=== PATIENT | female | born 1975 | race Two or more races ===

== ENCOUNTER 2023-10-29 20:45 | Inpatient (IN) | payer MEDICAID, OTHER ==
[~2023-10-29] VITALS: Ht 162.6 cm; Wt 95.7 kg
[2023-10-29 21:04] LABS: Basophils # (auto) 0 10 ^3/uL (0-0.2); Basophils % (auto) 0.6 % (0.0-2.0); Eosinophils # (auto) 0 10 ^3/uL (0-0.8); Eosinophils % (auto) 0.5 % (0.0-7.0); Hematocrit 33.3 % (36.0-46.0); Hemoglobin 11.2 g/dL (12.2-16.2); Lymphocytes # (auto) 1.3 10 ^3/uL (0.4-5.4); Lymphocytes % (auto) 18.5 % (10.0-50.0); Mean Corpuscular Hemoglobin 27.9 pg (28.0-32.0); Mean Corpuscular Hgb Conc. 33.6 g/dL (32.0-36.0); Mean Corpuscular Volume 82.9 fL (80.0-100.0); Monocytes # (auto) 0.7 10 ^3/uL (0-1.3); Monocytes % (auto) 9.2 % (0.0-12.0); Neutrophils # (auto) 5.1 10 ^3/uL (1.6-8.6); Neutrophils % (auto) 71.2 % (37.0-80.0); Platelet Count (auto) 170 10^3/uL (140-450); Red Blood Cells 4.02 10^6/uL (4.0-5.20); Red Cell Distribution Width 13.4 % (11.8-14.3); White Blood Cell 7.1 10^3/uL (4.4-10.8)
[2023-10-29 21:10] VITALS: PULSE 99; RESP 22; O2SAT 95
[2023-10-29 21:19] LABS: INR 1.03 (0.9-1.15); Partial Thromboplastin Time 31.7 SEC (24.5-34.5); Prothrombin Time 10.9 sec (9.3-11.8)
[2023-10-29 21:20] LABS: Alanine Aminotransferase 13 U/L (7-40); Albumin 4.4 g/dL (3.2-4.8); Alkaline Phosphatase 104 U/L (46-116); Anion Gap 7 (5-15); Aspartate Aminotransferase 13 U/L (13-40); BUN/Creatinine Ratio 12.2 (10.0-20.0); Bilirubin, Total 0.9 mg/dL (0.2-1.0); Blood Urea Nitrogen 11 mg/dL (9-23); Calcium 9.6 mg/dL (8.7-10.4); Carbon Dioxide 29 mmol/L (20-30); Chloride 106 mmol/L (98-107); Glucose 72 mg/dL (74-106); Magnesium 1.8 mg/dL (1.6-2.6); Potassium 3.8 mmol/L (3.5-5.1); Sodium 142 mmol/L (136-145); Total Protein 7.3 g/dL (5.7-8.2)
[2023-10-29] MEDS: ACETAMINOPHEN 325 MG TAB PO ONE (21:21)
[2023-10-29] MEDS: AZITHROMYCIN 250 MG TAB PO ONE (21:21)
[2023-10-29] MEDS: VANCOMYCIN 1GM/250ML 200 ML IV ONE (21:45)
[2023-10-29] MEDS: ONDANSETRON HCL 4 MG/2 ML VIAL IV ONE (22:04)
[2023-10-29] MEDS: KETOROLAC TROMETH 30 MG/ML 1ML VIAL IV ONE (22:05)
[2023-10-29] MEDS: CEFEPIME 2GM/50ML NS 50 ML IV ONE (22:53)
[2023-10-29] MEDS: KETAMINE 50mg/ML 10ml Vial (500mg/10ml) IV ONE (22:54)
[2023-10-30 02:03] LABS: Urine Bacteria FEW /hpf (None Seen); Urine Blood Negative /uL (Negative); Urine Clarity Clear (Clear); Urine Color Light-Yellow (Yellow); Urine Protein, UAD Negative (Negative); Urine Specific Gravity 1.017 (1.001-1.035); Urine Urobilinogen Normal (Negative); Urine WBC 4 /hpf (0 - 5); Urine pH 5.5 (5.0-9.0)
[2023-10-30] MEDS ORDERED: MORPHINE SULFATE INJ 2 MG/ml SYRG IV PRN (04:30)
[2023-10-30] MEDS: ENOXAPARIN SOD 100 MG/1 ML SYRINGE SC ONE (04:30)
[2023-10-30] MEDS ORDERED: ACETAMINOPHEN 325 MG TAB PO PRN (04:30)
[2023-10-30] MEDS ORDERED: HYDROmorphone HCL 2 MG/ML VL/or syr IV PRN (05:45)
[2023-10-30 08:00] VITALS: PULSE 66; RESP 15; O2SAT 100
[2023-10-30] MEDS: cefTRIAXone 1GM/50ML D5W 50 ML IV SCH (09:37)
[2023-10-30] MEDS: ASPirin 81 mg TAB PO SCH (09:38)
[2023-10-30] MEDS: ISOSORBIDE MONONITRATE ER 60 MG TAB PO SCH (09:38)
[2023-10-30] MEDS: FUROSEMIDE 40 MG TAB PO SCH (09:39)
[2023-10-30] MEDS: amLODIPine BESYLATE 5 MG TAB PO SCH (09:39)
[2023-10-30] MEDS: RANOLAZINE ER 500 MG TAB PO SCH (09:39)
[2023-10-30] MEDS: APIXABAN 5 MG TAB PO SCH (09:40)
[2023-10-30] MEDS: METOPROLOL SUCCINATE XL 50 MG TAB PO SCH (09:40)
[2023-10-30 11:40] LABS: Amphetamine Screen, Urine Neg (NEGATIVE); Barbiturate Scree,Urine Neg (NEGATIVE); Benzodiazephine Screen, Urine Neg (NEGATIVE); Cocaine Screen, Urine Neg (NEGATIVE); Opiate Scree,Urine Neg (NEGATIVE)
[2023-10-30 11:41] LABS: Cannabinoid Screen, Urine Neg (NEGATIVE); Phencyclidine Screen, Urine Neg (NEGATIVE)
[2023-10-30 19:30] VITALS: PULSE 68; RESP 10; O2SAT 100
[2023-10-30] MEDS: AMIODARONE HCL 200 MG TAB PO ONE (19:51)
[2023-10-30] MEDS: ATORVASTATIN 20 MG TAB PO SCH (22:53)
[2023-10-31] VITALS (7 sets, daily range): BP systolic 138–155; BP diastolic 65–82; PULSE 57–71; RESP 17–18; TEMP 97.8–98.4; O2SAT 96–100
[2023-10-31] MEDS: KETOROLAC TROMETH 30 MG/ML 1ML VIAL IV ONE (03:03)
[2023-10-31 05:25] LABS: Anion Gap 5 (5-15); Carbon Dioxide 32 mmol/L (20-30); Chloride 103 mmol/L (98-107); Potassium 4.3 mmol/L (3.5-5.1); Sodium 140 mmol/L (136-145)
[2023-10-31 05:26] LABS: Calcium 9.1 mg/dL (8.7-10.4)
[2023-10-31 05:31] LABS: BUN/Creatinine Ratio 10.8 (10.0-20.0); Blood Urea Nitrogen 9 mg/dL (9-23); Glucose 104 mg/dL (74-106)
[2023-10-31] MEDS ORDERED: TIOT1AER INH (09:54)
[2023-10-31] MEDS ORDERED: ATOR40TA52 PO (09:54)
[2023-10-31] MEDS ORDERED: FURO40TA4 PO (09:54)
[2023-10-31] MEDS ORDERED: ISO60SRT PO (09:54)
[2023-10-31] MEDS ORDERED: MET50T PO (09:54)
[2023-10-31] MEDS ORDERED: AMLO1TAB23 PO (09:54)
[2023-10-31] MEDS ORDERED: APIX5TAB PO (09:54)
[2023-10-31] MEDS ORDERED: TIZA1TAB20 PO (09:54)
[2023-10-31] MEDS ORDERED: ESCI5TAB20 PO (09:54)
[2023-10-31] MEDS ORDERED: INSU100I52 SC (09:54)
[2023-10-31] MEDS ORDERED: PREG100C66 PO (09:54)
[2023-10-31] MEDS ORDERED: METO25TA93 PO (09:54)
[2023-10-31] MEDS ORDERED: OXYC15TA PO (09:54)
[2023-10-31] MEDS ORDERED: RANO10003 PO (09:54)
[2023-10-31] MEDS ORDERED: BUPR150T18 PO (09:54)
[2023-10-31] MEDS ORDERED: HYDRX10T PO (09:54)
[2023-10-31] MEDS ORDERED: ARIP10TA29 PO (09:54)
[2023-10-31] MEDS ORDERED: NICO7DIS31 (09:54)
[2023-10-31] MEDS ORDERED: INSU1INJ19 SC (09:54)
[2023-10-31] MEDS ORDERED: ALBU108A5 INH (09:54)
[2023-10-31] MEDS ORDERED: TRAZ1TAB12 PO (09:54)
[2023-10-31] MEDS ORDERED: ASPI-325 PO (09:54)
[2023-10-31] MEDS: ASPirin 81 mg TAB PO SCH (12:37)
[2023-10-31] MEDS: AMIODARONE HCL 200 MG TAB PO SCH (12:38)
[2023-10-31] MEDS: oxyCODONE ER 10 MG TAB PO SCH (16:30)
[2023-10-31] MEDS: KETOROLAC TROMETH 30 MG/ML 1ML VIAL IV PRN (17:49)
[2023-10-31] MEDS: NITROGLYCERIN 0.4 MG SL TAB SL PRN (17:58)
[2023-10-31] MEDS ORDERED: fentaNYL CITRATE 100 MCG/2 ML VL IV ONE (18:30)
[2023-10-31] MEDS ORDERED: oxyCODONE ER 10 MG TAB PO SCH (22:00)
[2023-10-31] MEDS: traMADol HCL 50 MG TAB PO ONE (23:30)
[2023-11-01] VITALS (8 sets, daily range): BP systolic 121–145; BP diastolic 64–87; PULSE 61–65; RESP 17–20; TEMP 97.5–98.9; O2SAT 95–100
[2023-11-01] MEDS: METOPROLOL SUCCINATE XL 50 MG TAB PO SCH (10:34)
[2023-11-01 11:44] LABS: Anion Gap 6 (5-15); Carbon Dioxide 33 mmol/L (20-30); Chloride 101 mmol/L (98-107); Potassium 4.3 mmol/L (3.5-5.1); Sodium 140 mmol/L (136-145)
[2023-11-01 11:45] LABS: Calcium 9.4 mg/dL (8.7-10.4)
[2023-11-01 11:50] LABS: BUN/Creatinine Ratio 19.4 (10.0-20.0); Blood Urea Nitrogen 18 mg/dL (9-23); Glucose 185 mg/dL (74-106)
[2023-11-01] MEDS: ONDANSETRON HCL 4 MG/2 ML VIAL IV PRN (15:06)
[2023-11-01] MEDS: TEMAZEPAM 15 MG CAP PO ONE (23:19)
[2023-11-02] VITALS (10 sets, daily range): BP systolic 102–132; BP diastolic 47–77; PULSE 60–66; RESP 18–20; TEMP 97.3–98.7; O2SAT 95–100
[2023-11-03 00:36] VITALS: BP 101/78; PULSE 68; RESP 18; TEMP 97.8; O2SAT 100
== END 2023-11-03 00:51 | disposition short-term general hospital (02) | DRG 200 ==
LOC: ER 20:45 → EDBD 20:45 → TELE 10-30 04:25 → TELE-WESTW 10-31 09:18
PROVIDERS: ADMIT Nurse Practitioner; ATTEND Internal Medicine
DX: I05.0 Rheumatic mitral stenosis (principal); I21.A1 Myocardial infarction type 2; I47.20 Ventricular tachycardia, unspecified; E11.9 Type 2 diabetes mellitus without complications; I50.9 Heart failure, unspecified; I11.0 Hypertensive heart disease with heart failure; N39.0 Urinary tract infection, site not specified; I25.10 Atherosclerotic heart disease of native coronary artery without angina pectoris; J44.9 Chronic obstructive pulmonary disease, unspecified; Z95.2 Presence of prosthetic heart valve; Z88.5 Allergy status to narcotic agent; Z79.899 Other long term (current) drug therapy; Z79.01 Long term (current) use of anticoagulants; Z79.82 Long term (current) use of aspirin; Z87.891 Personal history of nicotine dependence
CPT/HCPCS: 36415; 71045; 80048; 80053; 80307; 81001; 82962; 83605; 83735; 83880; 84484; 85025; 85610; 85730; 87040; 93005; 93306; 96365; 96375; 99291; G0378; J0692; J1885; J2405

== ENCOUNTER 2024-03-18 17:31 | Inpatient (IN) | payer MEDICAID ==
[~2024-03-18] VITALS: Ht 172.7 cm; Wt 99.9 kg
[~2024-03-18 17:31] MED LIST: ALBU108A5 INH; AMLO1TAB23 PO; APIX5TAB PO; ARIP10TA29 PO; ASPI-325 PO; ATOR40TA52 PO; BUPR150T18 PO; ESCI5TAB20 PO; FURO40TA4 PO; HYDRX10T PO; INSU100I52 SC; INSU1INJ19 SC; ISO60SRT PO; METO25TA93 PO; NICO7DIS31; OXYC15TA PO; PREG100C66 PO; RANO10003 PO; TIOT1AER INH; TIZA1TAB20 PO; TRAZ1TAB12 PO
[2024-03-18 18:37] LABS: Basophils # (auto) 0 10 ^3/uL (0-0.2); Basophils % (auto) 0.7 % (0.0-2.0); Eosinophils # (auto) 0.2 10 ^3/uL (0-0.8); Eosinophils % (auto) 2.9 % (0.0-7.0); Lymphocytes # (auto) 1.9 10 ^3/uL (0.4-5.4); Lymphocytes % (auto) 29.2 % (10.0-50.0); Mean Corpuscular Hemoglobin 27.6 pg (28.0-32.0); Mean Corpuscular Hgb Conc. 33.3 g/dL (32.0-36.0); Mean Corpuscular Volume 82.9 fL (80.0-100.0); Monocytes # (auto) 0.6 10 ^3/uL (0-1.3); Monocytes % (auto) 9.4 % (0.0-12.0); Neutrophils # (auto) 3.7 10 ^3/uL (1.6-8.6); Neutrophils % (auto) 57.8 % (37.0-80.0); Nucleated Red Blood Cells % 0.1 %; Platelet Count (auto) 195 10^3/uL (140-450); Red Blood Cells 3.99 10^6/uL (4.0-5.20); Red Cell Distribution Width 14.3 % (11.8-14.3); White Blood Cell 6.5 10^3/uL (4.4-10.8)
[2024-03-18 18:54] LABS: Alanine Aminotransferase 10 U/L (7-40); Albumin 4.4 g/dL (3.2-4.8); Anion Gap 5 (5-15); Blood Urea Nitrogen 11 mg/dL (9-23); Calcium 9.9 mg/dL (8.7-10.4); Carbon Dioxide 31 mmol/L (20-31); Chloride 104 mmol/L (98-107); Potassium 3.8 mmol/L (3.5-5.1); Sodium 140 mmol/L (136-145)
[2024-03-18 18:55] LABS: Bilirubin, Total 0.5 mg/dL (0.2-1.0)
[2024-03-18 18:58] LABS: Alkaline Phosphatase 121 U/L (46-116); Aspartate Aminotransferase < 8 U/L (13-40); Glucose 296 mg/dL (74-106)
--- NOTE | 2024-03-18 19:25 | ED.PDOC ---
HPI Comments 48y F who presents to the ED via EMS for chief complaint of chest pain. Pt states she has been having substernal chest pain since earlier this AM. Pt states the chest pain woke her from her sleep. Pt states the pain is substernal, non-radiating, constant, with associated exacerbating factor of pain while taking deep breaths or relieving factors. Pt states she also been dealing with associated shortness of breath, dry cough, nausea, and vomiting. Pt states she took nitro 0.4 mg x 3 prior to ED arrival. Pt states she also had CABG a few months prior at [place]. Pt otherwise denies any other symptoms at this time. Chief Complaint: Chest Pain Time Seen by MD: 19:23 Primary Care Provider: EDER ALVAREZ Reviewed Notes: Nurses Notes, Surgical Elastic Knitter Hand Frame Notes Allergies: Coded Allergies: Fentanyl (Verified Allergy, Unknown, 10/29/23) Morphine (Verified Allergy, Unknown, 10/29/23) Home Meds Reported Medications Tiotropium [place]-Olodaterol (Stiolto Respimat 2.5-2.5 Mcg/Act) 1 Aer Aer, 2 PUFF INH DAILY 10/31/23 Albuterol Sulfate (Albuterol Sulfate Hfa) 108 Mcg/Act Aer, INH 10/31/23 Insulin Glargine (Basaglar Kwikpen) 100 Unit/Ml Inj, SC 10/31/23 Aripiprazole (Aripiprazole) 10 Mg Tab, 1 TAB PO DAILY 10/31/23 Apixaban Base (ELIQUIS) 5 Mg Tab, 1 TAB PO BID 10/31/23 Tizanidine Hydrochloride (Tizanidine Hcl) 2 Mg Tab, PO 10/31/23 Escitalopram Oxalate (ESCITALOPRAM OXALATE) 5 Mg Tab, 1 TAB PO DAILY 10/31/23 Hydroxyzine Hcl (Hydroxyzine Hcl) 10 Mg Tab, 1 TAB PO BID 10/31/23 Pregabalin (Pregabalin) 100 Mg Cap, PO 10/31/23 Nicotine (Gnp Nicotine Transdermal) 7 Mg/24 Hr Dis, 1 DAILY 10/31/23 Oxycodone HCl (Oxycodone Hydrochloride) 15 Mg Tab, PO 10/31/23 Bupropion Hcl (Bupropion Hcl Xl) 150 Mg Tab, 1 TAB PO DAILY 10/31/23 Trazodone Hcl (Trazodone Hcl) 150 Mg Tab, 1 TAB PO DAILY 10/31/23 Furosemide (Furosemide) 40 Mg Tab, 1 TAB PO DAILY 10/31/23 Amlodipine Besylate (Amlodipine Besylate) 10 Mg Tab, 1 TAB PO DAILY 10/31/23 Metoprolol Succinate (Metoprolol Succinate Er) 25 Mg Tab, 1 TAB PO DAILY 10/31/23 Ranolazine (Ranolazine ER) 1,000 Mg Tab, 1 TAB PO BID 10/31/23 Insulin Lispro (Insulin Lispro) 100 Unit/Ml Inj, SC 10/31/23 Isosorbide Mononitrate (Isosorbide Mononitrate ER) 60 Mg Tab, 1 TAB PO DAILY 10/31/23 Aspirin (Aspirin Low Dose) 81 Mg Tab, 1 TAB PO DAILY 10/31/23 Atorvastatin Calcium (ATORVASTATIN CALCIUM) 40 Mg Tab, 1 TAB PO DAILY 10/31/23 Information Source: Patient, Emergency Med Personnel Mode of Arrival: EMS Brought in by: EMS Vital Signs Vital Signs Date Time Temp Pulse Resp B/P (MAP) Pulse Ox O2 Delivery O2 Flow Rate FiO2 03/18/24 21:00 98.0 76 17 159/83 (108) 99 98.0 03/18/24 19:03 Nasal Cannula 2.0 Physical Exam General: Awake, alert and oriented. No acute distress. Skin: Skin in warm, dry and intact. Appropriate color for ethnicity. HEENT: The head is normocephalic and atraumatic. Conjunctivae are clear without exudates or hemorrhage. Sclera is non-icteric. EOM are intact. No signs of nystagmus. Eyelids are normal in appearance without swelling or lesions. Oral mucosa is pink and moist Neck: The neck is supple with normal range of motion. No JVD. Cardiac: Heart rate and rhythm are normal. No murmurs, gallops, or rubs are auscultated. Respiratory: Rales at the bilateral bases. No sign of respiratory distress. Abdominal: Abdomen is soft, non-tender without distention. Bowel sounds are present and normoactive in all four quadrants. Extremities: Bilateral lower extremity pitting edema Neurological: The patient is awake, alert and oriented to person, place, and time with normal speech. Speech is clear. There is no facial asymmetry. Psychiatric: Appropriate mood and affect. Good judgement and insight. No visual or auditory hallucinations. Review of Systems: REVIEW OF SYSTEMS: No fever, no chills, HEENT: Positive congestion, No neck pain, no blurred vision Cardiac: Positive chest pain. No palpitations. Lungs: Positive shortness of breath, GI: No abdominal pain, no vomiting Musculoskeletal: Positive lower extremity edema n Skin: No rash, no wound Neuro: No headache, no dizziness, no syncope Past Medical History PAST MEDICAL HISTORY: CHF, COPD, DM, HTN Surgical History: CABG GRAIN COMBINER History: Denies all GRAIN COMBINER Hx Family History Family History: Unknown Social History Smoker: Non-Smoker Alcohol: Denies ETOH Use Drugs: Denies Drug Use Lives In: Home EKG EKG : Pulse Rate (adult): 67 [place]: Normal Cardiac Rhythm: Afib Block: None Hypertrophy: None ST: Normal Was a procedure done? Was a procedure done?: No CP Differential Dx Differential Diagnosis: A-fib, A-Flutter, Angina, Anxiety / Panic Attack, Heart Failure, NV, PVC's Other Differential Diagnosis acute coronary syndrome Differential Diagnosis: HTN Essential, HTN Accelerated, HTN Encephalopathy, Medical NonCompliance X-Ray, Labs, Meds, VS Vital Signs Date Time Temp Pulse Resp B/P (MAP) Pulse Ox O2 Delivery O2 Flow Rate FiO2 03/18/24 21:00 98.0 76 17 159/83 (108) 99 98.0 03/18/24 20:30 67 03/18/24 19:52 63 03/18/24 19:03 65 18 98 Nasal Cannula 2.0 03/18/24 19:03 98.1 65 18 169/91 (117) 98 98.1 03/18/24 18:36 72 03/18/24 17:52 99.0 70 15 173/114 (133) 99 03/18/24 17:31 67 Lab Test 03/18/24 19:40 03/18/24 18:20 Range/Units Troponin I High Sensitivity 628 *H 657 *H </=34 ng/L White Blood Count 6.5 4.4-10.8 10^3/uL Red Blood Count 3.99 L 4.0-5.20 10^6/uL Hemoglobin 11.0 L 12.2-16.2 g/dL Hematocrit 33.0 L 36.0-46.0 % Mean Corpuscular Volume 82.9 80.0-100.0 fL Mean Corpuscular Hemoglobin 27.6 L 28.0-32.0 pg Mean Corpuscular Hemoglobin Concent 33.3 32.0-36.0 g/dL Red Cell Distribution Width 14.3 11.8-14.3 % Platelet Count 195 140-450 10^3/uL Mean Platelet Volume 8.8 6.9-10.8 fL Neutrophils (%) (Auto) 57.8 37.0-80.0 % Lymphocytes (%) (Auto) 29.2 10.0-50.0 % Monocytes (%) (Auto) 9.4 0.0-12.0 % Eosinophils (%) (Auto) 2.9 0.0-7.0 % Basophils (%) (Auto) 0.7 0.0-2.0 % Neutrophils # (Auto) 3.7 1.6-8.6 10 ^3/uL Lymphocytes # (Auto) 1.9 0.4-5.4 10 ^3/uL Monocytes # (Auto) 0.6 0-1.3 10 ^3/uL Eosinophils # (Auto) 0.2 0-0.8 10 ^3/uL Basophils # (Auto) 0 0-0.2 10 ^3/uL Nucleated Red Blood Cells 0.1 % Prothrombin Time 10.5 9.3-11.8 sec Prothrombin Time INR 0.99 0.9-1.15 Activated Partial Thromboplast Time 27.9 24.5-34.5 SEC D-Dimer, Quantitative 0.89 H 0.0-0.49 mg/L FEU Sodium Level 140 136-145 mmol/L Potassium Level 3.8 3.5-5.1 mmol/L Chloride Level 104 98-107 mmol/L Carbon Dioxide Level 31 20-31 mmol/L Anion Gap 5 5-15 Blood Urea Nitrogen 11 9-23 mg/dL Creatinine 0.92 0.550-1.02 mg/dL Glomerular Filtration Rate Calc 77 >90 mL/min BUN/Creatinine Ratio 12.0 10.0-20.0 Serum Glucose 296 H 74-106 mg/dL Calcium Level 9.9 8.7-10.4 mg/dL Total Bilirubin 0.5 0.2-1.0 mg/dL Aspartate Amino Transferase (AST) < 8 L 13-40 U/L Alanine Aminotransferase (ALT) 10 7-40 U/L Alkaline Phosphatase 121 H 46-116 U/L B-Type Natriuretic Peptide 135.92 0-100 pg/mL Total Protein 7.0 5.7-8.2 g/dL Albumin 4.4 3.2-4.8 g/dL Current Medications Medications (Trade) Dose Ordered Sig/Jarrett Route Start Time Stop Time Status Last Admin Aspirin 324 mg ONCE ONCE PO 03/18/24 19:30 03/18/24 19:31 DC 03/18/24 20:59 Furosemide (Lasix Injection) 80 mg ONCE ONCE IV 03/18/24 19:30 03/18/24 19:31 DC 03/18/24 22:15 Heparin Sodium (Porcine) 4,000 units ONCE ONCE IV 03/18/24 21:00 03/18/24 21:01 DC 03/18/24 22:16 Heparin Sodium/ Dextrose 250 ml @ 10 mls/hr Q24H IV 03/18/24 21:00 03/18/24 23:11 [place] [id number] Ph: [phone] DIAGNOSTIC IMAGING Diagnostic Imaging Report : [id number] Signed PATIENT: BOB MONROY ACCT: [id number] UNIT: [id number] : 1975 LOC: ER ROOM / BED: / AGE / SEX: 48 / F ADM STATUS: REG ER SERVICE 04 ORDERING PHYSICIAN: TRACY NATION MD PROCEDURE(s): CXR1 - CHEST XRAY 1 VIEW REASON: CP ORDER NUMBER(s): [id number], ACCESSION NUMBER(s): [id number] CHEST RADIOGRAPH Indication: CP Technique: Single frontal view of the chest was obtained COMPARISON: Chest AP 10/29/2023 FINDINGS: Lines and Tubes: None Lungs: Mildly prominent pulmonary vascularity without evidence of pulmonary edema. No pulmonary infiltrates noted. Pleura: No effusion. No pneumothorax. Cardiomediastinal contours: Mild cardiomegaly. Bones: Unremarkable. Prior sternotomy. IMPRESSION: Mild cardiomegaly and mild pulmonary vascular congestion without evidence of pulmonary edema or airspace consolidation. ATED BY: ZAKC WU MD DICTATED DATE/TIME: 03/18/242005 SIGNED BY: ZACK WU MD SIGNED DATE/TIME: 03/18/242005 CC: Time of 1ST Reevaluation: 07:52 (2nd EKG shows: rate 63, sinus atrial rhythm, atrial premature complex, probably LVH, NO STEMI) Reevaluation 1ST: Unchanged Time of 2ND Reevaluation: 08:36 (3rd EKG shows, rate 72, AFIB , probable LVH, no STEMI) Reevaluation 2ND: Unchanged Patient Education/Counseling: Diagnosis, Treatment Family Education/Counseling: No Family Present Departure 1 Departure Time of Disposition: 19:44 Impression: Primary Impression: Chest pain Additional Impressions: NSTEMI (non-ST elevated myocardial infarction) CHF exacerbation Disposition: ADMITTED INPATIENT Condition: Stable Comments 48-year-old female who presents to the emergency with 1 day of chest pain, shortness of breath. Chest x-ray positive for congestive changes. EKG shows no ST elevations. Patient is started on, aspirin and heparin. Patient admitted for further treatment, evaluation and monitoring. Extensive evaluation was performed in attempt to identify or rule out: (See differential diagnosis section) The following tests were ordered, and results were reviewed by me: (See diagnostic results section) The following test were independently interpreted by me: EKG, chest x-ray I reviewed and agreed with the following test results read by other providers: Chest x-ray I reviewed the following notes from the pt's past medical encounters: Encounter October 27, 2023 for chest pain Additional information was gathered from interviewing the following independent historians: N/A Discussion of management or test interpretation with external physician/other qualified health zoo caretaker: N/A Addressed one or more chronic illnesses with severe exacerbation, progression, or side effects of treatment: CHF, an acute or chronic illness that poses a threat to life or bodily function: NSTEMI, CHF exacerbation Decision regarding hospitalization or escalation of hospital level of care: Risk and benefits of admission for further treatment of patient's condition was considered. Due to patient's current clinical condition, high risk of decline and poor outcome if discharged and need for further inpatient management and monitoring, patient will be admitted to the hospital. Drug therapy requiring intensive monitoring for toxicity: IV heparin , IV Lasix Parenteral controlled substances: N/A Decision regarding elective major surgery with identified patient or procedure risk factors: N/A Decision regarding emergency major surgery: N/A Decision not to resuscitate or to de-escalate care because of poor prognosis: N/A Diagnosis or treatment significantly limited by social determinants of health: N/A Critical Care Note Critical Care Time?: No Stability Stability form required: No Heart Score Heart Score: Heart Score Response (Comments) Value History Moderate Suspicious 1 EKG Repolarization Disturb 1 Age 45-64 1 Risk Factors >3 or Hx ASHD 2 Troponin >3 x's Normal limit 2 Total 7 I personally scribed for TRACY NATION MD ([email or web address]) on 03/18/24 at 19:25. Electronically submitted by William Sarah ([email or web address]). I personally scribed for TRACY NATION MD ([email or web address]) on 03/18/24 at 20:12. Electronically submitted by William Sarah ([email or web address]). I personally scribed for TRACY NATION MD ([email or web address]) on 03/18/24 at 20:30. Electronically submitted by William Sarah ([email or web address]). I personally scribed for TRACY NATION MD ([email or web address]) on 03/18/24 at 20:43. Electronically submitted by William Sarah ([email or web address]). TRACY NATION MD Mar 18, 2024 19:25
--- NOTE | 2024-03-18 20:09 | DVH ---
CHEST RADIOGRAPH Indication: CP Technique: Single frontal view of the chest was obtained COMPARISON: Chest AP 10/29/2023 FINDINGS: Lines and Tubes: None Lungs: Mildly prominent pulmonary vascularity without evidence of pulmonary edema. No pulmonary infil trates noted. Pleura: No effusion. No pneumothorax. Cardiomediastinal contours: Mild cardiomegaly. Bones: Unremarkable. Prior sternotomy. IMPRESSION: Mild cardiomegaly and mild pulmonary vascular congestion without evidence of pulmonary edema or airsp renetta consolidation.
[2024-03-18] MEDS: ASPirin 81 mg TAB PO ONE (20:59)
--- NOTE | 2024-03-18 21:10 | ECG ---
[facility] Test Date: 2024-03-18 Test Time: 17:31:30 Pat Name: BOB MORNOY Department: ER Room: 0216T Gender: F Mud Mixer Helper: YAMILKA : 1975 Requested By: LAZARO MCLEOD Order Number: [id number] Reading MD: Keny Irvin Measurements Intervals [place] Rate: 67 P: 0 CO: 0 QRS: 72 QRSD: 100 T: 40 QT: 415 QTc: 438 Interpretive Statements Atrial fibrillation Electronically Signed On 03-21-2024 10:45:59 PST by Keny Irvin Please click the below link to view image of tracing.
--- NOTE | 2024-03-18 21:10 | ECG ---
[facility] Test Date: 2024-03-18 Test Time: 20:36:16 Pat Name: BOB MONROY Department: ER Room: 0216T Gender: F Midwife Practitioner: YAMILKA : 1975 Requested By: LAZARO MCLEOD Order Number: [id number] Reading MD: Keny Irvin Measurements Intervals [place] Rate: 72 P: 0 [place]: 0 QRS: 54 QRSD: 99 T: 30 QT: 426 QTc: 467 Interpretive Statements Atrial fibrillation Probable left ventricular hypertrophy Baseline wander in lead(s) I,II,aVR,V1,V2,V3,V4,V5,V6 Electronically Signed On 03-21-2024 10:47:14 PST by Keny Irvin Please click the below link to view image of tracing.
--- NOTE | 2024-03-18 21:10 | ECG ---
[facility] Test Date: 2024-03-18 Test Time: 19:52:52 Pat Name: BOB MONROY Department: ER Room: 0216T Gender: F Lithographic Etcher: YAMILKA : 1975 Requested By: LAZARO MCLEOD Order Number: [id number] Reading MD: Keny Irvin Measurements Intervals [place] Rate: 63 P: -63 MN: 150 QRS: 56 QRSD: 100 T: 39 QT: 423 QTc: 434 Interpretive Statements Sinus or ectopic atrial rhythm Atrial premature complex Consider right atrial enlargement Probable left ventricular hypertrophy Electronically Signed On 03-21-2024 10:47:01 PST by Keny Irvin Please click the below link to view image of tracing.
[2024-03-18] MEDS: FUROSEMIDE 40 MG/4 ML VIAL IV ONE (21:12)
[2024-03-18] MEDS: NITROGLYCERIN 0.4 MG SL TAB SL PRN (21:14)
[2024-03-18] MEDS ORDERED: TEMAZEPAM 15 MG CAP PO PRN (21:15)
[2024-03-18] MEDS ORDERED: ACETAMINOPHEN 325 MG TAB PO PRN (21:15)
[2024-03-18] MEDS ORDERED: DEXTROSE (50%) 50ML SYRG IV PRN (21:15)
[2024-03-18] MEDS ORDERED: MORPHINE SULFATE INJ 2 MG/ml SYRG IV PRN (21:15)
--- NOTE | 2024-03-18 21:31 | DVHHP2 ---
History of Present Illness Reason for Visit: Chest pain History of Present Illness 48-year-old female presents for evaluation of chest pain. Patient endorses a one day history of substernal pressure-like nonradiating chest pain with associated shortness for breath, nausea, dizziness and bilateral lower extremity swelling. Denies cough or fever. No abdominal pain or distention. No other acute complaints reported. Past Medical History Hypertension, diabetes mellitus, COPD and CHF Past Surgical History CABG Family History Noncontributory Smoke: No ALCOHOL: none Drugs: None Lives: with Family Review of Systems Review of Systems Review of systems are currently negative otherwise addressed in HPI Allergies: Coded Allergies: Fentanyl (Verified Allergy, Unknown, 10/29/23) Morphine (Verified Allergy, Unknown, 10/29/23) Medications Current Medications Medications Dose Ordered Sig/Jarrett Route Start Time Stop Time Status Last Admin Dose Admin Heparin Sodium/ Dextrose 250 ml @ 10 mls/hr Q24H IV 03/18/24 21:00 Nitroglycerin 0.4 mg Q5MINP PRN SL 03/18/24 21:15 03/18/24 21:14 0.4 MG Morphine Sulfate 2 mg Q30M PRN IV 03/18/24 21:15 Hold Aspirin 162 mg DAILY PO 03/19/24 10:00 UNV Atorvastatin Calcium 40 mg HS PO 03/18/24 22:00 UNV Albuterol 2.5 mg Q6HPRN PRN NEB 03/18/24 21:15 UNV Amlodipine Besylate 10 mg DAILY PO 03/19/24 10:00 UNV Furosemide 20 mg BIDD IV 03/19/24 06:00 UNV Isosorbide Mononitrate 60 mg DAILY PO 03/19/24 10:00 UNV Ranolazine 1,000 mg BID PO 03/18/24 22:00 UNV Diagnostic Test (Pha) 1 strip Q6HR 03/19/24 00:00 UNV Insulin Human Regular Q6HR SC 03/19/24 00:00 UNV Dextrose 50 ml UD PRN IV 03/18/24 21:15 UNV Temazepam 15 mg QHSP PRN PO 03/18/24 21:15 UNV Ondansetron HCl 4 mg Q4HP PRN IV 03/18/24 21:15 UNV Acetaminophen 650 mg Q6HP PRN PO 03/18/24 21:15 UNV Exam Vital Signs Vital Signs Date Time Temp Pulse Resp B/P (MAP) Pulse Ox O2 Delivery O2 Flow Rate FiO2 03/18/24 21:14 168/75 03/18/24 21:00 98.0 76 17 99 98.0 03/18/24 19:03 Nasal Cannula 2.0 Exam Gen: 48-year-old female in mild distress Skin: Warm, dry, normal color and texture, no rash. HEENT: Normocephalic atraumatic, mucous membranes moist and pink. Neck: Cervical and supraclavicular nodes normal without enlargement, trachea is midline, thyroid gland is normal without masses. Pulmonary: Clear to auscultation and percussion bilaterally. Cardiac: Regular rate and rhythm. No murmur Abdomen: Soft, nontender, nondistended, bowel sounds present all 4 quadrants, no guarding, no rigidity, no organomegaly. Extremities: No cyanosis, clubbing, plus two bilateral pedal edema Neuro: Cranial nerves II through XII grossly intact, normal affect and speech, no focal motor deficits. Labs/Xrays ORDERING PHYSICIAN: TRACY NATION MD PROCEDURE(s): CXR1 - CHEST XRAY 1 VIEW REASON: CP ORDER NUMBER(s): [id number], ACCESSION NUMBER(s): [id number] CHEST RADIOGRAPH Indication: CP Technique: Single frontal view of the chest was obtained COMPARISON: Chest AP 10/29/2023 FINDINGS: Lines and Tubes: None Lungs: Mildly prominent pulmonary vascularity without evidence of pulmonary edema. No pulmonary infiltrates noted. Pleura: No effusion. No pneumothorax. Cardiomediastinal contours: Mild cardiomegaly. Bones: Unremarkable. Prior sternotomy. IMPRESSION: Mild cardiomegaly and mild pulmonary vascular congestion without evidence of pulmonary edema or airspace consolidation. Labs Test 03/18/24 19:40 03/18/24 18:20 Range/Units Troponin I High Sensitivity 628 *H </=34 ng/L White Blood Count 6.5 4.4-10.8 10^3/uL Red Blood Count 3.99 L 4.0-5.20 10^6/uL Hemoglobin 11.0 L 12.2-16.2 g/dL Hematocrit 33.0 L 36.0-46.0 % Mean Corpuscular Volume 82.9 80.0-100.0 fL Mean Corpuscular Hemoglobin 27.6 L 28.0-32.0 pg Mean Corpuscular Hemoglobin Concent 33.3 32.0-36.0 g/dL Red Cell Distribution Width 14.3 11.8-14.3 % Platelet Count 195 140-450 10^3/uL Mean Platelet Volume 8.8 6.9-10.8 fL Neutrophils (%) (Auto) 57.8 37.0-80.0 % Lymphocytes (%) (Auto) 29.2 10.0-50.0 % Monocytes (%) (Auto) 9.4 0.0-12.0 % Eosinophils (%) (Auto) 2.9 0.0-7.0 % Basophils (%) (Auto) 0.7 0.0-2.0 % Neutrophils # (Auto) 3.7 1.6-8.6 10 ^3/uL Lymphocytes # (Auto) 1.9 0.4-5.4 10 ^3/uL Monocytes # (Auto) 0.6 0-1.3 10 ^3/uL Eosinophils # (Auto) 0.2 0-0.8 10 ^3/uL Basophils # (Auto) 0 0-0.2 10 ^3/uL Nucleated Red Blood Cells 0.1 % Sodium Level 140 136-145 mmol/L Potassium Level 3.8 3.5-5.1 mmol/L Chloride Level 104 98-107 mmol/L Carbon Dioxide Level 31 20-31 mmol/L Anion Gap 5 5-15 Blood Urea Nitrogen 11 9-23 mg/dL Creatinine 0.92 0.550-1.02 mg/dL Glomerular Filtration Rate Calc 77 >90 mL/min BUN/Creatinine Ratio 12.0 10.0-20.0 Serum Glucose 296 H 74-106 mg/dL Calcium Level 9.9 8.7-10.4 mg/dL Total Bilirubin 0.5 0.2-1.0 mg/dL Aspartate Amino Transferase (AST) < 8 L 13-40 U/L Alanine Aminotransferase (ALT) 10 7-40 U/L Alkaline Phosphatase 121 H 46-116 U/L B-Type Natriuretic Peptide 135.92 0-100 pg/mL Total Protein 7.0 5.7-8.2 g/dL Albumin 4.4 3.2-4.8 g/dL Assessment/Plan Assessment/Plan Assessment Acute on chronic congestive heart failure Elevated troponin rule out NSTEMI versus demand ischemia COPD Diabetes mellitus Plan Admit the patient to telemetry to the hospitalist Cardiology consultation Continue heparin drip started by ER provider D-dimer/lipid panel/hemoglobin A1c pending Resume home medications Continue treatment per orders. Plan discussed with: Patient My Orders Orders - HARPREET BEASLEY AGACNP Procedure Category Date Status Time Admit ADMIT 03/18/24 Transmitted 21:06 Nitroglycerin PHA 03/18/24 In Process Sublingual (Ntrostat 21:15 Morphine Sulfate PHA 03/18/24 In Process Injection 21:15 Notify Of Changes ROSE 03/18/24 In Process From Base 21:06 Scalehouse Attendant For ROSE 03/18/24 In Process 24 Hours 21:06 Emergency Dysrhythmia ROSE 03/18/24 In Process Protocol 21:06 Rhythm Strips Once ROSE 03/18/24 In Process Every Shift 21:06 Oxygen By Nasal RT 03/18/24 Transmitted Cannula 21:06 Aspirin Tablet PHA 03/19/24 Logged 10:00 Atorvastatin (Lipitor) PHA 03/18/24 Logged 22:00 Albuterol Medneb PHA 03/18/24 Logged (Ventolin Medneb) 21:15 Amlodipine Tablet PHA 03/19/24 Logged (Norvasc Tablet) 10:00 Furosemide Injection PHA 03/19/24 Logged (Lasix Injection) 06:00 Isosorbide PHA 03/19/24 Logged Mononitrate Tablet 10:00 Ranolazine (Ranexa Er) PHA 03/18/24 Logged 22:00 * Cardiology Consult CONS 03/18/24 Transmitted 21:14 Basic Metabolic Panel LAB 03/19/24 Verified 04:00 Glucose Blood PHA 03/19/24 Logged (Accu-Chek Comfort 00:00 Insulin R (Human) PHA 03/19/24 Logged (Insulin R) 00:00 Dextrose 50% Syringe PHA 03/18/24 Logged 21:15 Temazepam (Restoril) PHA 03/18/24 Logged 21:15 Ondansetron Hcl PHA 03/18/24 Logged (Zofran) 21:15 Cardiac DIET 03/19/24 Transmitted Diet-2gna,Lofat,Lochol Breakfast Condition: Fair ROSE 03/18/24 In Process 21:14 Acetaminophen Tablet PHA 03/18/24 Logged (Tylenol Tablet) 21:15 Bedrest With Bathroom ROSE 03/18/24 In Process Privileg 21:14 Date of Service: Mar 18, 2024 Billing Provider: HARPREET BEASLEY Common Visit Codes: [id number] INP/OBS CARE (HIGH) HARPREET BEASLEY Mar 18, 2024 21:31
[2024-03-18 21:46] VITALS: PULSE 77; RESP 16; O2SAT 97
[2024-03-18 21:47] LABS: INR 0.99 (0.9-1.15); Partial Thromboplastin Time 27.9 SEC (24.5-34.5); Prothrombin Time 10.5 sec (9.3-11.8)
[2024-03-18] MEDS: HYDROmorphone HCL 2 MG/ML VL/or syr IV ONE (22:07)
[2024-03-18] MEDS: ATORVASTATIN 20 MG TAB PO SCH (22:12)
[2024-03-18] MEDS: RANOLAZINE ER 500 MG TAB PO SCH (22:13)
[2024-03-18] MEDS: HEPARIN SODIUM (PORCINE) 5000 UNITS/ML 1ML VIAL IV ONE (22:16)
[2024-03-18] MEDS: HEPARIN DRIP/D5W 100UNITS/ML 250 ML IV SCH (23:11)
[2024-03-19] MEDS: HYDROmorphone HCL 2 MG/ML VL/or syr IV SCH
[2024-03-19] MEDS: ONDANSETRON HCL 4 MG/2 ML VIAL IV PRN (00:19)
[2024-03-19] MEDS: InsuLIN REG 1unit/0.01ml Soln (100units/ml) SC SCH (00:19)
[2024-03-19] MEDS: ACCU-CHEK COMFORT CURVE STRIP VI SCH (00:19)
[2024-03-19 01:01] VITALS: BP 141/58; PULSE 71; RESP 18; TEMP 98.4; O2SAT 92
[2024-03-19] MEDS: ALBUTEROL SULF 2.5 MG/0.5ML(0.5%) NEB SOLN NEB PRN (01:01)
[2024-03-19 06:02] LABS: Anion Gap 7 (5-15); Chloride 102 mmol/L (98-107); INR 1.03 (0.9-1.15); Partial Thromboplastin Time 48.6 SEC (24.5-34.5); Prothrombin Time 10.9 sec (9.3-11.8); Sodium 142 mmol/L (136-145)
[2024-03-19 06:09] LABS: BUN/Creatinine Ratio 11.7 (10.0-20.0); Blood Urea Nitrogen 11 mg/dL (9-23)
[2024-03-19] MEDS: FUROSEMIDE 20 MG/2 ML VIAL IV SCH (06:12)
[2024-03-19 06:24] LABS: Carbon Dioxide 33 mmol/L (20-31); Glucose 188 mg/dL (74-106); Potassium 3.4 mmol/L (3.5-5.1)
[2024-03-19] MEDS: HEPARIN DRIP/D5W 100UNITS/ML 250 ML IV SCH ×2 (06:53→20:27)
[2024-03-19 07:21] VITALS: O2SAT 98
[2024-03-19 08:11] VITALS: PULSE 74; RESP 16; O2SAT 98
--- NOTE | 2024-03-19 09:54 | DVHINCON2 ---
RAMONE ROTH [facility] 03/19/24 0954: Date Seen: Mar 19, 2024 Referring Physician YOLIS Long Reason for Consultation CHF, high troponin History of Present Illness This is a 48-year-old female patient who presents to the emergency room with chief complaint of chest pain. Patient reports that it began yesterday at approximately 10:00 a.m. while she was sleeping. She describes it as unprovoked, constant, pressure-like in nature, midsternal with radiation across her left and right side of chest. Associated symptoms include shortness of breath. The patient reports taking sublingual nitroglycerin with relief. She came to the emergency room for further evaluation. Initial twelve lead electrocardiogram reveals atrial fibrillation. Initial troponin level of 657ng/L with flat trend thereafter. Significant past medical history includes mitral valve stenosis s/p multiple mitral valve repairs (most recent was a bovi ne transcatheter mitral valve replacement on 11/23/23), atrial fibrillation/flutter status post ablation, hypertension, dyslipidemia, type 2 diabetes mellitus, COPD, and morbid obesity. The patient reports previous mitral valve repairs in 2004 and 2012 respectively which were done via open heart. Past Medical History Past medical history reviewed. No other significant than mentioned above. Past Surgical History Mitral valve replacement X 3: 2004 (open heart), 2023 Family History: Cardiovascular disease G8 FATHER FHx: breast cancer G8 MOTHER, FHx: congestive heart failure G8 MOTHER, FHx: dementia G8 FATHER Family History Family history reviewed. Social History Denies the use of tobacco, alcohol or illicit drugs. Allergies: Coded Allergies: Fentanyl (Verified Allergy, Unknown, 10/29/23) Morphine (Verified Allergy, Unknown, 10/29/23) Home Meds Reported Medications Tiotropium [place]-Olodaterol (Stiolto Respimat 2.5-2.5 Mcg/Act) 1 Aer Aer, 2 PUFF INH DAILY 10/31/23 Albuterol Sulfate (Albuterol Sulfate Hfa) 108 Mcg/Act Aer, INH 10/31/23 Insulin Glargine (Basaglar Kwikpen) 100 Unit/Ml Inj, SC 10/31/23 Aripiprazole (Aripiprazole) 10 Mg Tab, 1 TAB PO DAILY 10/31/23 Apixaban Base (ELIQUIS) 5 Mg Tab, 1 TAB PO BID 10/31/23 Tizanidine Hydrochloride (Tizanidine Hcl) 2 Mg Tab, PO 10/31/23 Escitalopram Oxalate (ESCITALOPRAM OXALATE) 5 Mg Tab, 1 TAB PO DAILY 10/31/23 Hydroxyzine Hcl (Hydroxyzine Hcl) 10 Mg Tab, 1 TAB PO BID 10/31/23 Pregabalin (Pregabalin) 100 Mg Cap, PO 10/31/23 Nicotine (Gnp Nicotine Transdermal) 7 Mg/24 Hr Dis, 1 DAILY 10/31/23 Oxycodone HCl (Oxycodone Hydrochloride) 15 Mg Tab, PO 10/31/23 Bupropion Hcl (Bupropion Hcl Xl) 150 Mg Tab, 1 TAB PO DAILY 10/31/23 Trazodone Hcl (Trazodone Hcl) 150 Mg Tab, 1 TAB PO DAILY 10/31/23 Furosemide (Furosemide) 40 Mg Tab, 1 TAB PO DAILY 10/31/23 Amlodipine Besylate (Amlodipine Besylate) 10 Mg Tab, 1 TAB PO DAILY 10/31/23 Metoprolol Succinate (Metoprolol Succinate Er) 25 Mg Tab, 1 TAB PO DAILY 10/31/23 Ranolazine (Ranolazine ER) 1,000 Mg Tab, 1 TAB PO BID 10/31/23 Insulin Lispro (Insulin Lispro) 100 Unit/Ml Inj, SC 10/31/23 Isosorbide Mononitrate (Isosorbide Mononitrate ER) 60 Mg Tab, 1 TAB PO DAILY 10/31/23 Aspirin (Aspirin Low Dose) 81 Mg Tab, 1 TAB PO DAILY 10/31/23 Atorvastatin Calcium (ATORVASTATIN CALCIUM) 40 Mg Tab, 1 TAB PO DAILY 10/31/23 Home Meds Home medications reviewed. Current Medications Current Medications Medications (Trade) Dose Ordered Sig/Jarrett Route PRN Reason Start Time Stop Time Status Last Admin Heparin Sodium/ Dextrose 250 ml @ 10 mls/hr Q24H IV 03/18/24 21:00 03/19/24 06:44 DC 03/18/24 23:11 Nitroglycerin (Ntrostat Sublingual) 0.4 mg Q5MINP PRN SL FOR CHEST PAIN 03/18/24 21:15 03/19/24 09:49 DC 03/19/24 03:02 Morphine Sulfate 2 mg Q30M PRN IV FOR CHEST PAIN 03/18/24 21:15 03/19/24 09:49 DC Aspirin 162 mg DAILY PO 03/19/24 10:00 Atorvastatin Calcium (Lipitor) 40 mg HS PO 03/18/24 22:00 03/18/24 22:12 Albuterol (Ventolin Medneb) 2.5 mg Q6HPRN PRN NEB SHORTNESS OF BREATH 03/18/24 21:15 03/19/24 01:01 Amlodipine Besylate (Norvasc Tablet) 10 mg DAILY PO 03/19/24 10:00 Furosemide (Lasix Injection) 20 mg BIDD IV 03/19/24 06:00 03/19/24 09:49 DC 03/19/24 06:12 Isosorbide Mononitrate (Imdur Er Tablet) 60 mg DAILY PO 03/19/24 10:00 Ranolazine (Ranexa ER) 1,000 mg BID PO 03/18/24 22:00 03/18/24 22:13 Diagnostic Test (Pha) (Accu-Chek Comfort Curve T) 1 strip Q6HR 03/19/24 00:00 03/19/24 06:11 Insulin Human Regular (InsuLIN R) Q6HR SC 03/19/24 00:00 03/19/24 06:15 Dextrose 50 ml UD PRN IV Blood Sugar LESS THAN 60 03/18/24 21:15 Temazepam (Restoril) 15 mg QHSP PRN PO FOR INSOMNIA 03/18/24 21:15 03/19/24 09:49 DC Ondansetron HCl (Zofran) 4 mg Q4HP PRN IV NAUSEA / VOMITING 03/18/24 21:15 03/19/24 00:19 Acetaminophen (Tylenol Tablet) 650 mg Q6HP PRN PO PAIN SCALE 1-3 OR TEMP>100.4 03/18/24 21:15 Hydromorphone HCl (Dilaudid Injection) 0.25 mg Q6HPRN IV 03/19/24 00:00 03/19/24 07:03 Heparin Sodium/ Dextrose 250 ml @ 12 mls/hr [id number] IV 03/19/24 06:45 03/19/24 06:53 Review of Systems Constitutional: No symptom reported Ears, Nose, & Throat: No symptom reported Eyes: No symptom reported Neurological: No symptoms reported Pulmonary/Respiratory: No symptoms reported Cardiovascular: Chest pain Gastrointestinal: No symptom reported Genitourinary: No symptom reported Musculoskeletal: No symptom reported Skin: No symptom reported Psychiatric: No symptom reported Endocrine: No symptom reported Hematologic/Lymphatic: No symptom reported Vital Signs Vital Signs Date Time Temp Pulse Resp B/P (MAP) Pulse Ox O2 Delivery O2 Flow Rate FiO2 03/19/24 08:11 74 16 98 Nasal Cannula* 2 28 03/19/24 07:45 122/53 03/19/24 01:01 98.4 98.4 Physical Exam General Appearance: Cooperative. Obese Pulmonary/Respiratory: Clear, bilateral breaths sounds. Cardiovascular/Chest: Irregular rate and rhythm. Peripheral Pulses: 2+ Radial (R). 2+ Radial (L). 2+ Pedal (R). 2+ Pedal (L) Abdominal Exam: Normal bowel sounds. Ankle Exam: Negative ankle edema Lower extremities: Negative lower extremity edema Neuro/Mental Status: A/OX4, coherent. Thoughts/Psych: Normal thought pattern. Appropriate mood and affect. Good judgment and insight. Appearance: No acute distress. Skin Exam: Normal inspection. Normal color. Warm and dry. Labs/Diagnostic Data Labs Test 03/19/24 07:50 03/19/24 04:55 03/18/24 22:48 03/18/24 18:20 Range/Units POC Glucose 187 H 70-106 mg/dl Prothrombin Time 10.9 9.3-11.8 sec Prothrombin Time INR 1.03 0.9-1.15 Activated Partial Thromboplast Time 48.6 H 24.5-34.5 SEC Sodium Level 142 136-145 mmol/L Potassium Level 3.4 L 3.5-5.1 mmol/L Chloride Level 102 98-107 mmol/L Carbon Dioxide Level 33 H 20-31 mmol/L Anion Gap 7 5-15 Blood Urea Nitrogen 11 9-23 mg/dL Creatinine 0.94 0.550-1.02 mg/dL Glomerular Filtration Rate Calc 75 >90 mL/min BUN/Creatinine Ratio 11.7 10.0-20.0 Serum Glucose 188 H 74-106 mg/dL Calcium Level 10.0 8.7-10.4 mg/dL Troponin I High Sensitivity 607 *H </=34 ng/L White Blood Count 6.5 4.4-10.8 10^3/uL Red Blood Count 3.99 L 4.0-5.20 10^6/uL Hemoglobin 11.0 L 12.2-16.2 g/dL Hematocrit 33.0 L 36.0-46.0 % Mean Corpuscular Volume 82.9 80.0-100.0 fL Mean Corpuscular Hemoglobin 27.6 L 28.0-32.0 pg Mean Corpuscular Hemoglobin Concent 33.3 32.0-36.0 g/dL Red Cell Distribution Width 14.3 11.8-14.3 % Platelet Count 195 140-450 10^3/uL Mean Platelet Volume 8.8 6.9-10.8 fL Neutrophils (%) (Auto) 57.8 37.0-80.0 % Lymphocytes (%) (Auto) 29.2 10.0-50.0 % Monocytes (%) (Auto) 9.4 0.0-12.0 % Eosinophils (%) (Auto) 2.9 0.0-7.0 % Basophils (%) (Auto) 0.7 0.0-2.0 % Neutrophils # (Auto) 3.7 1.6-8.6 10 ^3/uL Lymphocytes # (Auto) 1.9 0.4-5.4 10 ^3/uL Monocytes # (Auto) 0.6 0-1.3 10 ^3/uL Eosinophils # (Auto) 0.2 0-0.8 10 ^3/uL Basophils # (Auto) 0 0-0.2 10 ^3/uL Nucleated Red Blood Cells 0.1 % D-Dimer, Quantitative 0.89 H 0.0-0.49 mg/L FEU Total Bilirubin 0.5 0.2-1.0 mg/dL Aspartate Amino Transferase (AST) < 8 L 13-40 U/L Alanine Aminotransferase (ALT) 10 7-40 U/L Alkaline Phosphatase 121 H 46-116 U/L B-Type Natriuretic Peptide 135.92 0-100 pg/mL Total Protein 7.0 5.7-8.2 g/dL Albumin 4.4 3.2-4.8 g/dL Assessment NSTEMI Mitral valve stenosis status post bovine mitral valve replacement (2004, 2012, 2023) Atrial fibrillation, likely paroxysmal (on amiodarone and Eliquis) Hypertension Dyslipidemia COPD Type 2 diabetes mellitus Morbid obesity Plan/Recommendation We will continue with the following plan/recommendations (Dr. Goodwin): Case reviewed and discussed with . We will proceed with obtaining a tra nsthoracic echocardiogram to evaluate cardiac function, valves, and wall motion. Patient had recent coronary angiogram at [facility]. Dr. Goodwin to speak with traveling construction superintendent at [facility] regarding patient's recent workup. In the meantime, continue with medical management. Further recommendations and plan per clinical progression. Thank you for allowing us to care for this patient. Please call with any questions or concerns. Critical care time spent: 44 minutes This medical document was created using an electronic medical record system with voice recognition software and computerized dictation system. Although this document has been carefully reviewed, there might still be some phonetic and typographical errors. Occasional wrong-word or ``sound-alike substitutions may have occurred due to the inherent limitations of voice recognition software. These areas are purely typographical due to imperfections of the software programs and do not reflect any compromise in the patient's medical care. Please read the chart carefully and recognize, using context, where these substitutions have occurred. Plan discussed with: Patient NYHA Physical activity limitations: NA Date of Service: Mar 19, 2024 Billing Provider: RAMONE ROTH Cardiology Common Codes: 64104-PHXREMF INP/OBS CARE (High) Cardiology Consultation Codes: 84175-[id number] CONSULT <45MIN CARY GOODWIN MD 03/19/247: Family History: Cardiovascular disease G8 FATHER FHx: breast cancer G8 MOTHER, FHx: congestive heart failure G8 MOTHER, FHx: dementia G8 FATHER Allergies: Coded Allergies: Fentanyl (Verified Allergy, Unknown, 10/29/23) Morphine (Verified Allergy, Unknown, 10/29/23) Home Meds Reported Medications Tiotropium [place]-Olodaterol (Stiolto Respimat 2.5-2.5 Mcg/Act) 1 Aer Aer, 2 PUFF INH DAILY 10/31/23 Albuterol Sulfate (Albuterol Sulfate Hfa) 108 Mcg/Act Aer, INH 10/31/23 Insulin Glargine (Basaglar Kwikpen) 100 Unit/Ml Inj, SC 10/31/23 Aripiprazole (Aripiprazole) 10 Mg Tab, 1 TAB PO DAILY 10/31/23 Apixaban Base (ELIQUIS) 5 Mg Tab, 1 TAB PO BID 10/31/23 Tizanidine Hydrochloride (Tizanidine Hcl) 2 Mg Tab, PO 10/31/23 Escitalopram Oxalate (ESCITALOPRAM OXALATE) 5 Mg Tab, 1 TAB PO DAILY 10/31/23 Hydroxyzine Hcl (Hydroxyzine Hcl) 10 Mg Tab, 1 TAB PO BID 10/31/23 Pregabalin (Pregabalin) 100 Mg Cap, PO 10/31/23 Nicotine (Gnp Nicotine Transdermal) 7 Mg/24 Hr Dis, 1 DAILY 10/31/23 Oxycodone HCl (Oxycodone Hydrochloride) 15 Mg Tab, PO 10/31/23 Bupropion Hcl (Bupropion Hcl Xl) 150 Mg Tab, 1 TAB PO DAILY 10/31/23 Trazodone Hcl (Trazodone Hcl) 150 Mg Tab, 1 TAB PO DAILY 10/31/23 Furosemide (Furosemide) 40 Mg Tab, 1 TAB PO DAILY 10/31/23 Amlodipine Besylate (Amlodipine Besylate) 10 Mg Tab, 1 TAB PO DAILY 10/31/23 Metoprolol Succinate (Metoprolol Succinate Er) 25 Mg Tab, 1 TAB PO DAILY 10/31/23 Ranolazine (Ranolazine ER) 1,000 Mg Tab, 1 TAB PO BID 10/31/23 Insulin Lispro (Insulin Lispro) 100 Unit/Ml Inj, SC 10/31/23 Isosorbide Mononitrate (Isosorbide Mononitrate ER) 60 Mg Tab, 1 TAB PO DAILY 10/31/23 Aspirin (Aspirin Low Dose) 81 Mg Tab, 1 TAB PO DAILY 10/31/23 Atorvastatin Calcium (ATORVASTATIN CALCIUM) 40 Mg Tab, 1 TAB PO DAILY 10/31/23 Plan/Recommendation PATIENT SEEN WITH RESIDENT MD AND RN PT HAS COMPLEX HX, HX OF MVrepair in 2004 during , hx of MVR bio in 2012 and mitral replacement perc with DR Dejesus i called Dr Dejesus at [facility] and spoke to him today he had done negative LHC in past on pt he recommended medical management for patient if pt stable pt has Afib now but claims she didnt have it last week , she had afib ablation 1-2 weeks after surgery valve gradient is 3 mmhg it was felt with [facility] structural heart this was less likely acs cause and perhaps another issues, shes on doac likely her afib is bothering her as she feels her heart is erratic , consider DCCV with her EP consider po amiodarone and monitoring for pt RAMONE ROTH Mar 19, 2024 09:54 CARY GOODWIN MD Mar 19, 2024 19:47
[2024-03-19] MEDS: ISOSORBIDE MONONITRATE ER 60 MG TAB PO SCH (10:31)
[2024-03-19] MEDS: amLODIPine BESYLATE 5 MG TAB PO SCH (10:32)
[2024-03-19] MEDS: ASPirin 81 mg TAB PO SCH (10:33)
[2024-03-19 13:32] LABS: INR 1.05 (0.9-1.15); Partial Thromboplastin Time 60.3 SEC (24.5-34.5); Prothrombin Time 11.1 sec (9.3-11.8)
[2024-03-19] MEDS: POTASSIUM EFFERVESENT TAB 25 MEQ PO ONE (14:19)
--- NOTE | 2024-03-19 15:40 | DVHPNRES ---
Progress Note Date Seen: Mar 19, 2024 Resident Creating Document: OCTAVIO LOPEZ RESIDENT Medical Necessity Reason Pt with a Central, PICC or Fol: No Medical Necessity Reason Patient is a 48-year-old female with past medical history of mitral valve stenosis, CHF, AFib, COPD, hypertension, DM, dyslipidemia, gastroparesis, neuropathy, sleep apnea who came in due to chest pain that started 1 day ago, substernal pressure-like without any radiation along with with shortness of breaths that has been ongoing for the past 2 weeks. Patient notes that shortness of breath is what actually prompted this visit to the hospital, per patient she used her home oxygen 2 L along with her inhalers which did not relieve her shortness of breath and dyspnea. Patient notes that she started Ryze diet and since then her symptoms have been progressively getting worse. According to the patient, she had her 1st open heart surgery with mitral valve repair in 2004, her 2nd open heart surgery with mitral valve replacement was done in 2012. Patient recently underwent percutaneous balloon mitral valvuloplasty at [facility] in December 2023. Patient was initially started on warfarin after the 1st surgery in 2004 in later she was transitioned to Eliquis, however, per patient she stopped taking Eliquis in 2016 which was later resumed in 2019 for reasons unknown to the patient. On review of systems patient is complaining of fatigue, cough, dyspnea, shortness of breath and nausea. Past surgical history: Open heart surgery x2, percutaneous balloon mitral valvuloplasty, cholecystectomy, ablation for likely AFib in December 2023, hernia repair surgery, tubal ligation Home medications: Amiodarone, sucralfate, Protonix, albuterol, Eliquis, aripiprazole, aspirin, statin, bupropion, dapagliflozin, diphenhydramine, escitalopram, furosemide, hydroxyzine, insulin, isosorbide mononitrate, metoclopramide, metoprolol, Protonix, pregabalin, ranolazine, semaglutide, spironolactone, tizanidine, trazodone Past Hospitalization: In November 2023 at [facility] Social & Personal history: Patient lives with her sister. Quit smoking 1 month ago, prior to that was smoking 4-5 cigarettes per day for 35 years. Denies using alcohol. 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 Allergies: Morphine, fentanyl Patient seen and examined at bedside. Patient is alert and oriented to time, place person and responding to all questions. General: Fatigue Eyes: No Pain, No Vision change, No Conjunctivae inflammation, No Eyelid inflammation, No Other, No Redness ENT: No Ear pain, No Ear discharge, No Nose pain, No Nose discharge, No Nose congestion, No Mouth pain, No Mouth swelling, No Throat pain, No Throat swelling, No Other Cardiovascular: No Chest Pain, No Palpitations, No Orthopnea, No Paroxysmal No Dyspnea, No Edema, No Lt Headedness, No Other Respiratory: Cough, No Dry, Shortness of breath, No SOB with exertion, No Wheezing, No Hemoptysis, No Pleuritic Pain, No Sputum, No Other Gastrointestinal: Nausea, No Vomiting, No Abdominal Pain, No Diarrhea, No Constipation, No Melena, No Hematochezia, No Other Genitourinary: No Dysuria, No Frequency, No Incontinence, No Hematuria, No Retention, No Other Musculoskeletal: No other, No neck pain, No shoulder pain, No arm pain, No back pain, No hand pain, No leg pain, No foot pain Skin: No Rash, No Lesions, No Jaundice, No Bruising, No Other Objective vital signs Vital Sign Date Time Temp Pulse Resp B/P (MAP) Pulse Ox O2 Delivery O2 Flow Rate FiO2 03/19/24 13:53 76 14 103/52 03/19/24 09:00 100 03/19/24 08:11 Nasal Cannula* 2 28 03/19/24 01:01 98.4 98.4 Total Intake and Output 03/18/24 03/18/24 03/19/24 15:00 23:00 07:00 Intake Total 60 ml Output Total 2500 ml Balance -2440 ml medications Current Medications Medications Dose Ordered Sig/Jarrett Route Start Time Stop Time Status Last Admin Dose Admin Atorvastatin Calcium 40 mg HS PO 03/18/24 22:00 03/18/24 22:12 40 MG Albuterol 2.5 mg Q6HPRN PRN NEB 03/18/24 21:15 03/19/24 01:01 2.5 MG Amlodipine Besylate 10 mg DAILY PO 03/19/24 10:00 03/19/24 10:32 10 MG Isosorbide Mononitrate 60 mg DAILY PO 03/19/24 10:00 03/19/24 10:31 60 MG Ranolazine 1,000 mg BID PO 03/18/24 22:00 03/19/24 10:32 1,000 MG Diagnostic Test (Pha) 1 strip Q6HR 03/19/24 00:00 03/19/24 12:16 1 STRIP Insulin Human Regular Q6HR SC 03/19/24 00:00 03/19/24 06:15 4 UNITS Dextrose 50 ml UD PRN IV 03/18/24 21:15 Ondansetron HCl 4 mg Q4HP PRN IV 03/18/24 21:15 03/19/24 00:19 4 MG Acetaminophen 650 mg Q6HP PRN PO 03/18/24 21:15 Hydromorphone HCl 0.25 mg Q6HPRN IV 03/19/24 00:00 03/19/24 13:53 0.25 MG Heparin Sodium/ Dextrose 250 ml @ 12 mls/hr [id number] IV 03/19/24 06:45 03/19/24 06:53 12 MLS/HR Examination General Appearance: Cooperative. Well developed. Well nourished. NAD Head Exam: Normal inspection Neck Exam: Normal inspection. Non-tender. Normal alignment Pulmonary/Respiratory: Chest non-tender. Clear bilateral breath sounds, no crackles, no wheezing. Cardiovascular/Chest: Regular rate and rhythm. No murmurs. No JVD. Peripheral Pulses: 2+ Radial (R). 2+ Radial (L). 2+ Pedal (R). 2+ Pedal (L) Abdominal Exam: Normal bowel sounds. Soft. normal abdomen, no visible veins, Nontender. No hepatospenomegaly. No masses Ankle Exam: Negative ankle edema Lower extremities: Trace lower extremity edema Neuro/Mental Status: A&O x4. Coherent. Thoughts/Psych: Normal thought pattern. Appropriate mood and affect. Good judgement and insight Skin Exam: Normal inspection. Normal color. Warm. Dry laboratory and microbiology Laboratory Tests 03/19/24 04:55 03/18/24 18:20 Test 03/19/24 04:55 Range/Units Serum Glucose 188 H 74-106 mg/dL Labs and/or images reviewed: Labs reviewed by me, Image(s) reviewed by me Problem List/Assessment/Plan Problem List/Assessment/Plan Mitral valve replacement secondary to mitral sclerosis/stenosis? NSTEMI possibly type 2 due to above Congestive heart failure Atrial fibrillation, rate controlled - ordered echocardiogram - cardiology on board - CXR: Mild cardiomegaly and mild pulmonary vascular congestion without evidence of pulmonary edema or airspace consolidation - resumed home medication atorvastatin, amlodipine - isosorbide mononitrate 60 mg p.o. daily, ranolazine 1000 mg p.o. b.i.d. COPD, currently stable - albuterol med nebs Type 2 diabetes, insulin dependent Peripheral neuropathy - mild sliding scale insulin Secondary hypercoagulable state; mitral bovine transcatheter valve History of pulmonary embolism - heparin at 12 mL/hour PUD prophylaxis: protonix 40mg Goals of care: Full code, discussed for >16 minutes on 08/15/23 Plan discussed with patient Plan discussed with Dr. Quiñonez Plan discussed with: Patient, Other (RN) My Orders My Orders Orders - OCTAVIO LOPEZ Procedure Category Date Status Time Blood Culture AGUEDA 03/19/24 In Process 13:23 Date of Service: Mar 19, 2024 Billing Provider: LISETH QUIÑONEZ MD Common Visit Codes: [id number] INP/OBS CARE(HIGH) OCTAVIO LOPEZ Mar 19, 2024 15:40 LISETH QUIÑONEZ MD Mar 20, 2024 15:37
[2024-03-19] MEDS: SUCRALFATE 1 GM/10 ML ORAL SUSP GT SCH (17:52)
[2024-03-19 18:35] VITALS: O2SAT 97
[2024-03-19 19:36] LABS: INR 1.04 (0.9-1.15); Partial Thromboplastin Time 37.5 SEC (24.5-34.5)
[2024-03-19 19:45] VITALS: PULSE 75; RESP 17; O2SAT 96
--- NOTE | 2024-03-19 20:18 | DVHSR ---
APPROVED REPORT EXAM: Two-dimensional and M-mode echocardiogram with Doppler and color Doppler. Blood Pressure: 132/65 mmHg INDICATION evaluate cardiac function RISK FACTORS Obesity: Height: 5'8, Weight: 02 DIMENSIONS LVDd4.6 (3.8-5.7cm)LA (2D)4.0 (1.9-4.0cm)Aortic Root2.7 (2.0-3.7cm) LVDs3.4 (2.5-4.0cm)LA (MM) (1.9-4.0cm)Aortic Cusp Exc1.3 (1.5-2.0cm) EF (%) 50.0 (55-70%)Rt. Atrium4.8 (1.9-4.0cm)Asc. Aorta cm IVSd1.0 (0.7-1.1cm)RV (D) (1.8-2.4cm) PWd1.0 (0.7-1.1cm) Mitral Valve MitralMitral Stenosis E wavem/sMV Mean GR.4mmHg A wavem/sMV Peak GR.10mmHg E/A ratio0.02D MVAcm2 Aortic Valve Aortic ValveAortic Stenosis V10.85m/Valerie Mean GR.6mmHg V21.65m/Valerie Peak GR.11mmHg LVOT Diameter2.2 (1.8-2.4cm)Doppler AVA1.96cm2 Pulmonic Valve V21.13m/s Tricuspid Valve TR Velocity2.27m/s [id number] Other Information Quality : Technically LimitedRhythm : Technically limited study due to body habitus.patient position. Conclusion lvef 55% by visual estimate postop septum normal rv function s/p MV replacement prosthetic, mean graident is 3.5 mmhg, no severe MR noted left atrium enlarged
[2024-03-20 03:13] LABS: Basophils # (auto) 0.1 10 ^3/uL (0-0.2); Basophils % (auto) 0.8 % (0.0-2.0); Eosinophils # (auto) 0.2 10 ^3/uL (0-0.8); Eosinophils % (auto) 2.6 % (0.0-7.0); Hematocrit 33.1 % (36.0-46.0); Hemoglobin 10.8 g/dL (12.2-16.2); Lymphocytes # (auto) 2.4 10 ^3/uL (0.4-5.4); Lymphocytes % (auto) 28.1 % (10.0-50.0); Mean Corpuscular Hemoglobin 27.5 pg (28.0-32.0); Mean Corpuscular Hgb Conc. 32.6 g/dL (32.0-36.0); Mean Corpuscular Volume 84.2 fL (80.0-100.0); Monocytes # (auto) 0.9 10 ^3/uL (0-1.3); Monocytes % (auto) 10.7 % (0.0-12.0); Neutrophils # (auto) 4.9 10 ^3/uL (1.6-8.6); Neutrophils % (auto) 57.8 % (37.0-80.0); Platelet Count (auto) 187 10^3/uL (140-450); Red Blood Cells 3.93 10^6/uL (4.0-5.20); Red Cell Distribution Width 14.5 % (11.8-14.3); White Blood Cell 8.5 10^3/uL (4.4-10.8)
[2024-03-20 03:37] LABS: INR 1.05 (0.9-1.15); Prothrombin Time 11.1 sec (9.3-11.8)
[2024-03-20 03:55] LABS: Partial Thromboplastin Time 95.8 SEC (24.5-34.5)
[2024-03-20] MEDS: HEPARIN DRIP/D5W 100UNITS/ML 250 ML IV SCH (05:00)
[2024-03-20] MEDS: PANTOPRAZOLE 40 MG TAB PO SCH (05:58)
[2024-03-20 07:08] LABS: Anion Gap 6 (5-15); Chloride 99 mmol/L (98-107); Potassium 4.2 mmol/L (3.5-5.1); Sodium 139 mmol/L (136-145)
[2024-03-20 07:10] LABS: Calcium 9.7 mg/dL (8.7-10.4)
[2024-03-20 07:14] LABS: BUN/Creatinine Ratio 14.1 (10.0-20.0); Blood Urea Nitrogen 14 mg/dL (9-23)
[2024-03-20 07:21] LABS: Basophils # (auto) 0 10 ^3/uL (0-0.2); Basophils % (auto) 0.5 % (0.0-2.0); Eosinophils # (auto) 0.2 10 ^3/uL (0-0.8); Hematocrit 32.7 % (36.0-46.0); Hemoglobin 10.6 g/dL (12.2-16.2); Lymphocytes # (auto) 1.4 10 ^3/uL (0.4-5.4); Lymphocytes % (auto) 19.9 % (10.0-50.0); Mean Corpuscular Hemoglobin 27.2 pg (28.0-32.0); Mean Corpuscular Hgb Conc. 32.5 g/dL (32.0-36.0); Mean Corpuscular Volume 83.7 fL (80.0-100.0); Monocytes # (auto) 0.7 10 ^3/uL (0-1.3); Monocytes % (auto) 10.1 % (0.0-12.0); Neutrophils # (auto) 4.7 10 ^3/uL (1.6-8.6); Neutrophils % (auto) 66.5 % (37.0-80.0); Nucleated Red Blood Cells % 0.1 %; Platelet Count (auto) 205 10^3/uL (140-450); Red Blood Cells 3.91 10^6/uL (4.0-5.20); Red Cell Distribution Width 14.3 % (11.8-14.3); White Blood Cell 7.1 10^3/uL (4.4-10.8)
[2024-03-20 07:25] VITALS: O2SAT 100
[2024-03-20 07:26] LABS: Carbon Dioxide 34 mmol/L (20-31); Glucose 124 mg/dL (74-106)
[2024-03-20] MEDS: METOPROLOL SUCCINATE XL 50 MG TAB PO SCH (10:00)
--- NOTE | 2024-03-20 10:05 | ECG ---
[facility] Test Date: 2024-03-19 Test Time: 23:46:14 Pat Name: BOB MONROY Department: ER Room: 0216T Gender: F Active Directory Architect: : [id number] Requested By: ALYSON OCHOA Order Number: [id number] Reading MD: Keny Irvin Measurements Intervals [place] Rate: 73 P: -60 IN: 153 QRS: 71 QRSD: 102 T: 86 QT: 437 QTc: 482 Interpretive Statements Sinus or ectopic atrial rhythm Probable left ventricular hypertrophy Electronically Signed On 03-21-2024 11:59:37 PST by Keny Irvin Please click the below link to view image of tracing.
--- NOTE | 2024-03-20 11:15 | DVHPNRES ---
Progress Note Date Seen: Mar 20, 2024 Resident Creating Document: OCTAVIO LOPEZ RESIDENT Medical Necessity Reason Pt with a Central, PICC or Fol: No Subjective Review of Systems Patient is a 48-year-old female with past medical history of mitral valve stenosis, CHF, AFib, COPD, hypertension, DM, dyslipidemia, gastroparesis, neuropathy, sleep apnea who came in due to chest pain that started 1 day ago, substernal pressure-like without any radiation along with with shortness of breaths that has been ongoing for the past 2 weeks. Patient notes that shortness of breath is what actually prompted this visit to the hospital, per patient she used her home oxygen 2 L along with her inhalers which did not relieve her shortness of breath and dyspnea. Patient notes that she started Ryze diet and since then her symptoms have been progressively getting worse. According to the patient, she had her 1st open heart surgery with mitral valve repair in 2004, her 2nd open heart surgery with mitral valve replacement was done in 2012. Patient recently underwent percutaneous balloon mitral valvuloplasty at [facility] in December 2023. Patient was initially started on warfarin after the 1st surgery in 2004 in later she was transitioned to Eliquis, however, per patient she stopped taking Eliquis in 2016 which was later resumed in 2019 for reasons unknown to the patient. On review of systems patient is complaining of fatigue, cough, dyspnea, shortness of breath and nausea. Past surgical history: Open heart surgery x2, percutaneous balloon mitral valvuloplasty, cholecystectomy, ablation for likely AFib in December 2023, hernia repair surgery, tubal ligation Home medications: Amiodarone, sucralfate, Protonix, albuterol, Eliquis, aripiprazole, aspirin, statin, bupropion, dapagliflozin, diphenhydramine, escitalopram, furosemide, hydroxyzine, insulin, isosorbide mononitrate, metoclopramide, metoprolol, Protonix, pregabalin, ranolazine, semaglutide, spironolactone, tizanidine, trazodone Past Hospitalization: In November 2023 at [facility] Social & Personal history: Patient lives with her sister. Quit smoking 1 month ago, prior to that was smoking 4-5 cigarettes per day for 35 years. Denies using alcohol. 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 Allergies: Morphine, fentanyl Patient seen and examined at bedside. Patient is alert and oriented to time, place person and responding to all questions. Patient continues to complain of chest pain, 9/10, pressure-like and stabbing in nature, radiating across her chest. Objective vital signs Vital Sign Date Time Temp Pulse Resp B/P (MAP) Pulse Ox O2 Delivery O2 Flow Rate FiO2 03/20/24 10:25 138/77 03/20/24 10:09 76 03/20/24 09:50 16 99 03/20/24 07:42 Nasal Cannula* 2 28 03/20/24 07:42 98.3 98.3 Total Intake and Output 03/19/24 03/19/24 03/20/24 15:00 23:00 07:00 Intake Total 108 ml 324 ml 78 ml Output Total 1100 ml Balance 108 ml -776 ml 78 ml medications Current Medications Medications Dose Ordered Sig/Jarrett Route Start Time Stop Time Status Last Admin Dose Admin Atorvastatin Calcium 40 mg HS PO 03/18/24 22:00 03/19/24 21:43 40 MG Albuterol 2.5 mg Q6HPRN PRN NEB 03/18/24 21:15 03/19/24 01:01 2.5 MG Amlodipine Besylate 10 mg DAILY PO 03/19/24 10:00 03/20/24 10:25 10 MG Isosorbide Mononitrate 60 mg DAILY PO 03/19/24 10:00 03/19/24 10:31 60 MG Ranolazine 1,000 mg BID PO 03/18/24 22:00 03/20/24 10:24 1,000 MG Diagnostic Test (Pha) 1 strip Q6HR 03/19/24 00:00 03/20/24 05:51 1 STRIP Insulin Human Regular Q6HR SC 03/19/24 00:00 03/19/24 23:53 4 UNITS Dextrose 50 ml UD PRN IV 03/18/24 21:15 Ondansetron HCl 4 mg Q4HP PRN IV 03/18/24 21:15 03/20/24 08:08 4 MG Acetaminophen 650 mg Q6HP PRN PO 03/18/24 21:15 Hydromorphone HCl 0.25 mg Q6HPRN IV 03/19/24 00:00 03/20/24 05:59 0.25 MG Pantoprazole Sodium 40 mg DAILY@0600 PO 03/20/24 06:00 03/20/24 05:58 40 MG Sucralfate 1 gm QID@0600,1130,1700,2200 GT 03/19/24 17:00 03/20/24 05:58 1 GM Heparin Sodium/ Dextrose 250 ml @ 11 mls/hr [id number] IV 03/20/24 05:00 03/20/24 05:00 11 MLS/HR Metoprolol Succinate 25 mg DAILY PO 03/20/24 10:00 Examination General Appearance: Cooperative. Well developed. Well nourished. NAD. Euvolemic Head Exam: Normal inspection Neck Exam: Normal inspection. Non-tender. Normal alignment Pulmonary/Respiratory: Chest non-tender. Clear bilateral breath sounds, no crackles, no wheezing. Cardiovascular/Chest: Regular rate and rhythm. Trace murmurs. No JVD. Peripheral Pulses: 2+ Radial (R). 2+ Radial (L). 2+ Pedal (R). 2+ Pedal (L) Abdominal Exam: Normal bowel sounds. Soft. normal abdomen, no visible veins, Nontender. No hepatospenomegaly. No masses Ankle Exam: Negative ankle edema Lower extremities: No lower extremity edema Neuro/Mental Status: A&O x4. Coherent. Thoughts/Psych: Normal thought pattern. Appropriate mood and affect. Good judgement and insight Skin Exam: Normal inspection. Normal color. Warm. Dry laboratory and microbiology Laboratory Tests 03/20/24 05:58 Test 03/20/24 05:58 Range/Units Serum Glucose 124 H 74-106 mg/dL Labs and/or images reviewed: Labs reviewed by me, Image(s) reviewed by me Problem List/Assessment/Plan Problem List/Assessment/Plan Mitral valve replacement secondary to mitral stenosis NSTEMI possibly type 2 due to above Congestive heart failure Atrial fibrillation, rate controlled - ordered echocardiogram: EF 55%. Postop septum. Normal RV function. S/p MV replacement prosthetic, mean gradient is 3.5 mmHg, no severe mitral regurgitation noted. Left atrium enlarged. - cardiology on board - CXR: Mild cardiomegaly and mild pulmonary vascular congestion without evidence of pulmonary edema or airspace consolidation - resumed home medication atorvastatin, amlodipine - isosorbide mononitrate 60 mg p.o. daily, ranolazine 1000 mg p.o. b.i.d. - added metoprolol succinate 25 mg p.o. daily - repeat EKG: Sinus or ectopic atrial rhythm. Probable left ventricular hypertrophy. COPD, currently stable - albuterol med nebs Type 2 diabetes, insulin dependent Peripheral neuropathy - mild sliding scale insulin Secondary hypercoagulable state; mitral bovine transcatheter valve History of pulmonary embolism - heparin at 12 mL/hour PUD prophylaxis: protonix 40mg Goals of care: Full code, discussed for >16 minutes on 08/15/23 Plan discussed with patient Plan discussed with Dr. Quiñonez Plan discussed with: Patient, Other (RN) My Orders My Orders Orders - OCTAVIO LOPEZ Procedure Category Date Status Time Blood Culture AGUEDA 03/19/24 In Process 13:23 Pantoprazole Tablet PHA 03/20/24 In Process (Protonix Tablet) 06:00 Sucralfate Susp PHA 03/19/24 In Process (Carafate Susp) 17:00 Date of Service: Mar 20, 2024 Billing Provider: LISETH QUIÑONEZ MD Common Visit Codes: [id number] INP/OBS CARE(HIGH) OCTAVIO LOPEZ Mar 20, 2024 11:15 LISETH QUIÑONEZ MD Mar 20, 2024 15:50
[2024-03-20 12:00] LABS: INR 1.06 (0.9-1.15); Prothrombin Time 11.2 sec (9.3-11.8)
[2024-03-20 12:06] LABS: Partial Thromboplastin Time 71.3 SEC (24.5-34.5)
[2024-03-20 17:57] LABS: INR 1.07 (0.9-1.15); Partial Thromboplastin Time 69.8 SEC (24.5-34.5); Prothrombin Time 11.3 sec (9.3-11.8)
--- NOTE | 2024-03-20 19:28 | DVHPN2 ---
RAMONE ROTH [facility] 03/20/241927: Consult Progress Note Subjective Other Systems: Patient remains in atrial fibrillation with controlled rate Objective vital signs Vital Sign Date Time Temp Pulse Resp B/P (MAP) Pulse Ox O2 Delivery O2 Flow Rate FiO2 03/20/24 18:53 79 14 149/71 03/20/24 16:00 94 03/20/24 07:42 Nasal Cannula* 2 28 03/20/24 07:42 98.3 98.3 Total Intake and Output 03/19/24 03/19/24 03/20/24 15:00 23:00 07:00 Intake Total 108 ml 324 ml 78 ml Output Total 1100 ml Balance 108 ml -776 ml 78 ml medications Current Medications Medications Dose Ordered Sig/Jarrett Route Start Time Stop Time Status Last Admin Dose Admin Atorvastatin Calcium 40 mg HS PO 03/18/24 22:00 03/19/24 21:43 40 MG Albuterol 2.5 mg Q6HPRN PRN NEB 03/18/24 21:15 03/19/24 01:01 2.5 MG Amlodipine Besylate 10 mg DAILY PO 03/19/24 10:00 03/20/24 10:25 10 MG Isosorbide Mononitrate 60 mg DAILY PO 03/19/24 10:00 03/19/24 10:31 60 MG Ranolazine 1,000 mg BID PO 03/18/24 22:00 03/20/24 10:24 1,000 MG Diagnostic Test (Pha) 1 strip Q6HR 03/19/24 00:00 03/20/24 18:00 1 STRIP Insulin Human Regular Q6HR SC 03/19/24 00:00 03/20/24 18:46 3 UNITS Dextrose 50 ml UD PRN IV 03/18/24 21:15 Ondansetron HCl 4 mg Q4HP PRN IV 03/18/24 21:15 03/20/24 12:53 4 MG Acetaminophen 650 mg Q6HP PRN PO 03/18/24 21:15 Hydromorphone HCl 0.25 mg Q6HPRN IV 03/19/24 00:00 03/20/24 18:53 0.25 MG Pantoprazole Sodium 40 mg DAILY@0600 PO 03/20/24 06:00 03/20/24 05:58 40 MG Sucralfate 1 gm QID@0600,1130,1700,2200 GT 03/19/24 17:00 03/20/24 05:58 1 GM Heparin Sodium/ Dextrose 250 ml @ 11 mls/hr [id number] IV 03/20/24 05:00 03/20/24 05:00 11 MLS/HR Metoprolol Succinate 25 mg DAILY PO 03/20/24 10:00 Examination: GENERAL:Normal, LUNGS:Normal, CVS:Normal, NEURO:Normal laboratory and microbiology Laboratory Tests 03/20/24 05:58 Test 03/20/24 05:58 Range/Units Serum Glucose 124 H 74-106 mg/dL Problem List/Assessment/Plan Problem List/Assessment/Plan NSTEMI, likely type II Mitral valve stenosis status post bovine mitral valve replacement (2004, 2012, 2023) Atrial fibrillation, likely paroxysmal (on amiodarone and Eliquis) Hypertension Dyslipidemia COPD Type 2 diabetes mellitus Morbid obesity Plan/Recommendation (Dr. Goodwin): Patient seen and examined in the emergency room with . Transthoracic echocardiogram reveals EF 55%, no severe MR noted. has personally spoken with Dr. Armstrong at [facility]. Patient is currently in atrial fibrillation despite having a recent ablation a few weeks after her surgery in November 2023. She now remains in atrial fibrillation with controlled rate. Given the patient's clinical presentation, doubt ACS. [id number] VASc score: 3 points. We will recommend to stop heparin drip and restart patient on NOAC therapy. Continue with medical management and close cardiac surveillance. Thank you for allowing us to care for this patient. Please call with any questions or concerns. This medical document was created using an electronic medical record system with voice recognition software and computerized dictation system. Although this document has been carefully reviewed, there might still be some phonetic and typographical errors. Occasional wrong-word or ``sound-alike substitutions may have occurred due to the inherent limitations of voice recognition software. These areas are purely typographical due to imperfections of the software programs and do not reflect any compromise in the patient's medical care. Please read the chart carefully and recognize, using context, where these substitutions have occurred. Plan discussed with: Patient Date of Service: Mar 20, 2024 Billing Provider: RAMONE ROTH Common Visit Codes: [id number] INP/OBS CARE(HIGH) CARY GOODWIN MD 03/21/24 0856: Consult Progress Note Problem List/Assessment/Plan Problem List/Assessment/Plan trop likely 2/2 to Afib recurrence, rate controlled, dc cecily on doac, [facility] told me they will get pt in [place] for appt, pt has her own EP and can consider redo ablation vs dccv with them RAMONE ROTH Mar 20, 2024 19:28 CARY GOODWIN MD Mar 21, 2024 08:56
[2024-03-20 19:54] VITALS: O2SAT 99
[2024-03-20 20:00] VITALS: PULSE 78; RESP 13; O2SAT 97
[2024-03-20] MEDS: APIXABAN 5 MG TAB PO SCH (23:19)
[2024-03-20 23:22] VITALS: BP 131/62; PULSE 66; PULSE 77; PULSE 78; RESP 17; RESP 18; TEMP 98; O2SAT 100; O2SAT 99
[2024-03-21] VITALS (7 sets, daily range): BP systolic 116–145; BP diastolic 59–76; PULSE 67–98; RESP 18; TEMP 98.2–98.9; O2SAT 96–100
[2024-03-21 06:40] LABS: Anion Gap 6 (5-15); Basophils # (auto) 0 10 ^3/uL (0-0.2); Basophils % (auto) 0.3 % (0.0-2.0); Chloride 99 mmol/L (98-107); Eosinophils # (auto) 0.2 10 ^3/uL (0-0.8); Eosinophils % (auto) 2.6 % (0.0-7.0); Hematocrit 34.3 % (36.0-46.0); Hemoglobin 11.5 g/dL (12.2-16.2); Lymphocytes # (auto) 1.3 10 ^3/uL (0.4-5.4); Lymphocytes % (auto) 20.2 % (10.0-50.0); Mean Corpuscular Hemoglobin 27.6 pg (28.0-32.0); Mean Corpuscular Hgb Conc. 33.5 g/dL (32.0-36.0); Mean Corpuscular Volume 82.4 fL (80.0-100.0); Monocytes # (auto) 0.8 10 ^3/uL (0-1.3); Monocytes % (auto) 13.3 % (0.0-12.0); Neutrophils % (auto) 63.6 % (37.0-80.0); Nucleated Red Blood Cells % 0.2 %; Platelet Count (auto) 198 10^3/uL (140-450); Red Blood Cells 4.17 10^6/uL (4.0-5.20); Red Cell Distribution Width 14.2 % (11.8-14.3); Sodium 137 mmol/L (136-145); White Blood Cell 6.3 10^3/uL (4.4-10.8)
[2024-03-21 06:41] LABS: Calcium 10.2 mg/dL (8.7-10.4)
[2024-03-21 06:46] LABS: BUN/Creatinine Ratio 11.2 (10.0-20.0); Blood Urea Nitrogen 10 mg/dL (9-23)
[2024-03-21 06:48] LABS: Carbon Dioxide 32 mmol/L (20-31); Glucose 148 mg/dL (74-106); Potassium 3.5 mmol/L (3.5-5.1)
[2024-03-21] MEDS ORDERED: APIX5TAB PO (11:10)
--- NOTE | 2024-03-21 11:12 | DVHDSRES ---
Discharge Summary Date of Admission Resident Creating Document: OCTAVIO LOPEZ RESIDENT Mar 18, 2024 at 21:06 Date of Discharge: Mar 21, 2024 Admitting Diagnosis Shortness of breaths and chest pain Labs/Diagnostic Data: Laboratory Results Test 03/21/24 05:43 03/21/24 05:36 03/20/24 17:15 03/20/24 05:58 POC Glucose 151 mg/dl (70-106) White Blood Count 6.3 10^3/uL (4.4-10.8) Red Blood Count 4.17 10^6/uL (4.0-5.20) Hemoglobin 11.5 g/dL (12.2-16.2) Hematocrit 34.3 % (36.0-46.0) Mean Corpuscular Volume 82.4 fL (80.0-100.0) Mean Corpuscular Hemoglobin 27.6 pg (28.0-32.0) Mean Corpuscular Hemoglobin Concent 33.5 g/dL (32.0-36.0) Red Cell Distribution Width 14.2 % (11.8-14.3) Platelet Count 198 10^3/uL (140-450) Mean Platelet Volume 8.5 fL (6.9-10.8) Neutrophils (%) (Auto) 63.6 % (37.0-80.0) Lymphocytes (%) (Auto) 20.2 % (10.0-50.0) Monocytes (%) (Auto) 13.3 % (0.0-12.0) Eosinophils (%) (Auto) 2.6 % (0.0-7.0) Basophils (%) (Auto) 0.3 % (0.0-2.0) Neutrophils # (Auto) 4.0 10 ^3/uL (1.6-8.6) Lymphocytes # (Auto) 1.3 10 ^3/uL (0.4-5.4) Monocytes # (Auto) 0.8 10 ^3/uL (0-1.3) Eosinophils # (Auto) 0.2 10 ^3/uL (0-0.8) Basophils # (Auto) 0 10 ^3/uL (0-0.2) Nucleated Red Blood Cells 0.2 % Sodium Level 137 mmol/L (136-145) Potassium Level 3.5 mmol/L (3.5-5.1) Chloride Level 99 mmol/L (98-107) Carbon Dioxide Level 32 mmol/L (20-31) Anion Gap 6 (5-15) Blood Urea Nitrogen 10 mg/dL (9-23) Creatinine 0.89 mg/dL (0.550-1.02) Glomerular Filtration Rate Calc 80 mL/min (>90) BUN/Creatinine Ratio 11.2 (10.0-20.0) Serum Glucose 148 mg/dL (74-106) Calcium Level 10.2 mg/dL (8.7-10.4) Prothrombin Time 11.3 sec (9.3-11.8) Prothrombin Time INR 1.07 (0.9-1.15) Activated Partial Thromboplast Time 69.8 SEC (24.5-34.5) Hemoglobin A1c 8.9 % A1C (<5.7) Test 03/18/24 22:48 03/18/24 18:20 Troponin I High Sensitivity 607 ng/L (</=34) D-Dimer, Quantitative 0.89 mg/L FEU (0.0-0.49) Total Bilirubin 0.5 mg/dL (0.2-1.0) Aspartate Amino Transferase (AST) < 8 U/L (13-40) Alanine Aminotransferase (ALT) 10 U/L (7-40) Alkaline Phosphatase 121 U/L (46-116) B-Type Natriuretic Peptide 135.92 pg/mL (0-100) Total Protein 7.0 g/dL (5.7-8.2) Albumin 4.4 g/dL (3.2-4.8) Other Laboratory Tests 03/21/24 05:36 Brief Hx & Hospital Course: Patient is a 48-year-old female with past medical history of mitral valve stenosis, CHF, AFib, COPD, hypertension, DM, dyslipidemia, gastroparesis, neuropathy, sleep apnea who came in due to chest pain that started 1 day ago, substernal pressure-like without any radiation along with with shortness of breaths that has been ongoing for the past 2 weeks. Patient notes that shortness of breath is what actually prompted this visit to the hospital, per patient she used her home oxygen 2 L along with her inhalers which did not relieve her shortness of breath and dyspnea. Patient notes that she started Ryze diet and since then her symptoms have been progressively getting worse. According to the patient, she had her 1st open heart surgery with mitral valve repair in 2004, her 2nd open heart surgery with mitral valve replacement was done in 2012. Patient recently underwent percutaneous balloon mitral valvuloplasty at [facility] in December 2023. Patient was initially started on warfarin after the 1st surgery in 2004 in later she was transitioned to Eliquis, however, per patient she stopped taking Eliquis in 2016 which was later resumed in 2019 for reasons unknown to the patient. On review of systems patient is complaining of fatigue, cough, dyspnea, shortness of breath and nausea. Hospital course: Echocardiogram showed ejection fraction 55%, postoperative septum. Normal right ventricular function. S/p mitral valve replacement prosthetic, mean gradient is 3.5 mmHg, notes mitral regurgitation noted. Left atrium enlarged. Cardiology was taken on board, home medication atorvastatin, amlodipine, isosorbide mononitrate, ranolazine were continued. On 2nd day of hospitalization metoprolol succinate 25 mg p.o. was also added. EKG initially showed AFib, on the 3rd day of hospitalization EKG showed sinus or ectopic atrial rhythm. Patient was also continued on ipratropium and albuterol med nebs along with a mild sliding scale insulin. Patient received heparin 12 mL/hour for the 1st 2 days of hospitalization owing to the suspicion of NSTEMI, however, was eventually transitioned to Eliquis 5 mg p.o. b.i.d.. On the day of discharge, patient appeared well and had stable vital signs heart rate was controlled, patient denied experiencing chest pain and was comfortable. 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 Patient was discharged home with portable oxygen for transportation, she was instructed to continue home medications including Eliquis 5 mg p.o. b.i.d.. Her hospital course was uncomplicated. General Appearance: Cooperative. Well developed. Well nourished. NAD. Euvolemic Head Exam: Normal inspection Neck Exam: Normal inspection. Non-tender. Normal alignment Pulmonary/Respiratory: Chest non-tender. Clear bilateral breath sounds, no crackles, no wheezing. Cardiovascular/Chest: Regular rate and rhythm. Trace murmurs. No JVD. Peripheral Pulses: 2+ Radial (R). 2+ Radial (L). 2+ Pedal (R). 2+ Pedal (L) Abdominal Exam: Normal bowel sounds. Soft. normal abdomen, no visible veins, Nontender. No hepatospenomegaly. No masses Ankle Exam: Negative ankle edema Lower extremities: No lower extremity edema Neuro/Mental Status: A&O x4. Coherent. Thoughts/Psych: Normal thought pattern. Appropriate mood and affect. Good judgement and insight Skin Exam: Normal inspection. Normal color. Warm. Dry Operations or Procedures CHEST RADIOGRAPH Indication: CP Technique: Single frontal view of the chest was obtained COMPARISON: Chest AP 10/29/2023 FINDINGS: Lines and Tubes: None Lungs: Mildly prominent pulmonary vascularity without evidence of pulmonary edema. No pulmonary infiltrates noted. Pleura: No effusion. No pneumothorax. Cardiomediastinal contours: Mild cardiomegaly. Bones: Unremarkable. Prior sternotomy. IMPRESSION: Mild cardiomegaly and mild pulmonary vascular congestion without evidence of pulmonary edema or airspace consolidation. EXAM: Two-dimensional and M-mode echocardiogram with Doppler and color Doppler. Blood Pressure: 132/65 mmHg INDICATION evaluate cardiac function RISK FACTORS Obesity: Height: 5'8, Weight: 02 DIMENSIONS LVDd 4.6 (3.8-5.7cm) LA (2D) 4.0 (1.9-4.0cm) Aortic Root 2.7 (2.0- 3.7cm) LVDs 3.4 (2.5-4.0cm) LA (MM) (1.9-4.0cm) Aortic Cusp Exc 1.3 (1.5- 2.0cm) EF (%) 50.0 (55-70%) Rt. Atrium 4.8 (1.9-4.0cm) Asc. Aorta cm IVSd 1.0 (0.7-1.1cm) RV (D) (1.8-2.4cm) PWd 1.0 (0.7-1.1cm) Mitral Valve Mitral Mitral Stenosis E wave m/s MV Mean GR. 4mmHg A wave m/s MV Peak GR. 10mmHg E/A ratio 0.0 2D MVA cm2 Aortic Valve Aortic Valve Aortic Stenosis V1 0.85m/s AO Mean GR. 6mmHg V2 1.65m/s AO Peak GR. 11mmHg LVOT Diameter 2.2 (1.8-2.4cm) Doppler DENNY 1.96cm2 Pulmonic Valve V2 1.13m/s Tricuspid Valve TR Velocity 2.27m/s RVSP 30mmHg Other Information Quality : Technically Limited Rhythm : Technically limited study due to body habitus.patient position. Conclusion lvef 55% by visual estimate postop septum normal rv function s/p MV replacement prosthetic, mean graident is 3.5 mmhg, no severe MR noted left atrium enlarged Condition at Discharge: Fair Final Diagnosis/Problems List Mitral valve replacement secondary to mitral stenosis Atrial fibrillation without RVR NSTEMI possibly type 2 possibly due to above Congestive heart failure with preserved ejection fraction COPD Type 2 diabetes, insulin dependent and uncontrolled Peripheral neuropathy Secondary hypercoagulable state, mitral bovine transcatheter valve History of pulmonary embolus Discharge Disposition: Home Discharge Instruct/Medications Diet: Cardiac 2g Na,low cholest Activity: No Restrictions, As Tolerated Follow Up/Referral: Please follow up with offender job retention specialist at [facility] at your earliest Medications: Continue home medications including Eliquis 5 mg twice a day Discharge Statement: "Patient was advised to return to the ER or call 911 if any headaches, dizziness, shortness of breath, chest pain, abdominal pain, bleeding, fevers, or worsening of medical condition. Patient was counseled about treatment plan, medications, possible side effects, patientverbalized understanding. All questions were answered to the best of my ability. This discharge took greater then 30 minutes in planning, reviewing documentation, counseling the patient, and discussing with other team members." ASSESSMENT ASSESSMENT Assessment Mitral valve replacement secondary to mitral stenosis Atrial fibrillation without RVR NSTEMI possibly type 2 possibly due to above Congestive heart failure with preserved ejection fraction COPD Type 2 diabetes, insulin dependent and uncontrolled Peripheral neuropathy Secondary hypercoagulable state, mitral bovine transcatheter valve History of pulmonary embolus Date of Service: Mar 21, 2024 Billing Provider: LISETH QUIÑONEZ MD Common Visit Codes: [id number]/OBS DISCH DAY >30min OCTAVIO LOPEZ Mar 21, 2024 11:12 LISETH QUIÑONEZ MD Mar 21, 2024 20:49
--- NOTE | 2024-03-22 13:31 | ECG ---
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
== END 2024-03-21 16:05 | disposition home or self-care (01) | DRG 201 ==
LOC: EDBD 17:31 → EDSEX 17:31 → ER 17:31 → TELE 21:06 → OVERFLOW 03-19 16:22 → TELE-CENTR 03-20 21:23
PROVIDERS: ADMIT Student in an Organized Health Care Education/Training Program; ATTEND Student in an Organized Health Care Education/Training Program
DX: I48.91 Unspecified atrial fibrillation (principal); I21.A1 Myocardial infarction type 2; I50.33 Acute on chronic diastolic (congestive) heart failure; D68.59 Other primary thrombophilia; E11.42 Type 2 diabetes mellitus with diabetic polyneuropathy; I05.0 Rheumatic mitral stenosis; I11.0 Hypertensive heart disease with heart failure; E66.01 Morbid (severe) obesity due to excess calories; E78.5 Hyperlipidemia, unspecified; Z68.33 Body mass index [BMI] 33.0-33.9, adult; F17.210 Nicotine dependence, cigarettes, uncomplicated; J44.9 Chronic obstructive pulmonary disease, unspecified; Z80.3 Family history of malignant neoplasm of breast; Z82.49 Family history of ischemic heart disease and other diseases of the circulatory system; Z88.5 Allergy status to narcotic agent; Z95.1 Presence of aortocoronary bypass graft; Z95.3 Presence of xenogenic heart valve; Z88.8 Allergy status to other drugs, medicaments and biological substances; Z79.51 Long term (current) use of inhaled steroids; Z79.899 Other long term (current) drug therapy; Z79.4 Long term (current) use of insulin; Z90.49 Acquired absence of other specified parts of digestive tract
CPT/HCPCS: 36415; 71045; 80048; 80053; 82962; 83036; 83880; 84484; 85025; 85379; 85610; 85730; 87040; 93005; 93306; 94640; 96365; 96375; G0378; J1815; J2405